=== PATIENT | female | born 1975 | race Caucasian/White ===

== ENCOUNTER 2017-10-30 15:06 | Emergency (ER) | payer OTHER ==
[2017-10-30] MEDS ORDERED: LIDOCAINE 1% MPF 5 ML VIAL ONE (16:13)
[2017-10-30] MEDS ORDERED: HYDROCODONE/APAP 10/325 TAB ONE (16:14)
[2017-10-30 16:25] LABS: Absolute Lymphocytes (CBC) 1.8 K/uL (0.7-4.9); Absolute Monocytes 1.1 K/uL (0.1-1.3); Absolute Neutrophil 11.5 K/uL (1.8-8.0); Basophils % 0.3 % (0-1.3); Eosinophils % 1.3 % (0-4.4); Hematocrit 42.1 % (36.0-45.0); Lymphocytes % 12.3 % (15.3-44.8); MCH 32.7 pg (27.0-35.0); MCV 96.8 fL (80-100); MPV 9.5 fL (7.6-11.3); Monocytes % 7.7 % (3.3-12.3); RBC Red Blood Cell Count 4.35 M/uL (3.86-4.86)
--- NOTE | 2017-10-30 16:34 | RAD REPORT ---
EXAM DESCRIPTION: RAD - Elbow Left 3 View - 10/30/2017 4:13 pm CLINICAL HISTORY: Left elbow pain and swelling FINDINGS: No fracture or dislocation is seen. Edema is present within the subcutaneous tissues
[2017-10-30 16:37] LABS: Potassium 3.6 mEq/L (3.6-5.0)
[2017-10-30] MEDS ORDERED: CLINDAMYCIN 600MG/D5W 600 MG/50 ML BAG IV ONE (17:09)
[2017-10-30] MEDS ORDERED: SMZ./TMP. 800/160 MG TABLET ONE (17:09)
--- NOTE | 2017-10-30 18:19 | ER ---
Nurse's Notes [facility] Name: Ekta Collins Age: 42 yrs Sex: Female : 1975 Arrival Date: 10/30/2017 Time: 15:10 Bed 26 Private MD: Rocky Frias Diagnosis: Olecranon bursitis, left elbow;Cellulitis of left upper limb Presentation: 10/30 15:28 Presenting complaint: Patient states: Redness and swelling to left elbow. Patient had aj abrasion to elbow 1 week ago. Transition of care: patient was not received from another setting of care. Onset of symptoms was October 19, 2017. Risk Assessment: Do you want to hurt yourself or someone else? Patient reports no desire to harm self or others. Care prior to arrival: None. 15:28 Method Of Arrival: Ambulatory 15:28 Acuity: FRENCH 3 aj 16:09 Initial Sepsis Screen: Does the patient meet any 2 criteria? No. Patient's initial kr2 sepsis screen is negative. Does the patient have a suspected source of infection? Yes: Skin breakdown/wound. Triage Assessment: 15:29 General: Appears in no apparent distress. comfortable, Behavior is calm, cooperative, aj appropriate for age. Pain: Complains of pain in left elbow. Neuro: Level of Consciousness is awake, alert, obeys commands, Oriented to person, place, time, situation, Appropriate for age. Respiratory: Airway is patent Respiratory effort is even, unlabored, Respiratory pattern is regular, symmetrical. Derm: Skin is intact, is healthy with good turgor, Skin is pink, warm \T\ dry. normal. Musculoskeletal: Swelling present in left elbow. 16:09 Injury Description: Abrasion sustained to left elbow. 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 - Social history:: Smoking status: Patient uses tobacco products, smokes one pack cigarettes per day. - Ebola Screening: : Patient negative for fever greater than or equal to 101.5 degrees Fahrenheit, and additional compatible Ebola Virus Disease symptoms Patient denies exposure to infectious person Patient denies travel to an Ebola-affected area in the 21 days before illness onset No symptoms or risks identified at this time. - Family history:: not pertinent. - Hospitalizations: : No recent hospitalization is reported. Screenin:09 Abuse screen: Denies threats or abuse. Denies injuries from another. Nutritional kr2 screening: No deficits noted. Tuberculosis screening: No symptoms or risk factors identified. Fall Risk None identified. Assessment: 15:30 General: Appears in no apparent distress. uncomfortable, well groomed, well developed, kr2 well nourished, Behavior is calm, cooperative, appropriate for age. Pain: Complains of pain in left elbow Pain radiates to left arm Pain currently is 10 out of 10 on a pain scale. Quality of pain is described as aching, Pain began one week ago Is continuous, Alleviated by rest, Aggravated by increased activity, repositioning. Neuro: Level of Consciousness is awake, alert, obeys commands, Oriented to person, place, time, situation, Appropriate for age Ecological Risk Assessor are equal bilaterally Intact. Cardiovascular: Capillary refill < 3 seconds in bilateral fingers Patient's skin is warm and dry. Respiratory: Airway is patent Respiratory effort is even, unlabored, Respiratory pattern is regular, symmetrical. GI: Abdomen is flat, non-distended. : No signs and/or symptoms were reported regarding the genitourinary system. EENT: Oral mucosa is moist. Derm: Skin is intact, is healthy with good turgor, Skin is pink, warm \T\ dry. Derm: redness and swelling to left elbow, small abrasion that occurred after a fall 1 week ago. Musculoskeletal: Range of motion: limited in left elbow Swelling present in left elbow. 16:30 Reassessment: Patient appears in no apparent distress at this time. Patient and/or kr2 family updated on plan of care and expected duration. Pain level reassessed. Patient is alert, oriented x 3, equal unlabored respirations, skin warm/dry/pink. Patient states feeling better. 17:30 Reassessment: Patient appears in no apparent distress at this time. Patient and/or kr2 family updated on plan of care and expected duration. Pain level reassessed. Patient is alert, oriented x 3, equal unlabored respirations, skin warm/dry/pink. Patient states feeling better. Vital Signs: 15:29 BP 125 / 85; Pulse 80; Resp 16; Temp 97.8; Pulse Ox 97% on R/A; Weight 68.04 kg; Height aj 5 ft. 0 in. (152.40 cm); 17:13 BP 116 / 86; Pulse 68; Resp 17; Pulse Ox 96% on R/A; kr2 18:28 BP 120 / 80; Pulse 70; Resp 16; Pulse Ox 99% on R/A; kr2 15:29 Body Mass Index 29.29 (68.04 kg, 152.40 cm) ED Course: 15:10 Patient arrived in ED. sb2 15:10 Rocky Frias MD is Private Physician. sb2 15:29 Triage completed. aj 15:29 Arm band placed on right wrist. Patient placed in an exam room. aj 15:34 Toan Ruiz MD is Attending Physician. rn 15:53 Verenice Gonzáles RN is Primary Nurse. kr2 16:00 First set of blood cultures drawn by me. Inserted saline lock: 20 gauge in right kr2 antecubital area, using aseptic technique. Blood collected. 16:10 Patient has correct armband on for positive identification. Bed in low position. Call kr2 light in reach. Side rails up X 1. Adult w/ patient. Pulse ox on. NIBP on. Door closed. Warm blanket given. Head of bed elevated. 16:13 X-ray completed. Portable x-ray completed in exam room. Patient tolerated procedure kc2 well. 16:13 XRAY Elbow LEFT 3 view In Process Unspecified. EDMS 18:11 IV discontinued, intact, bleeding controlled, No redness/swelling at site. Pressure mb3 dressing applied. 18:18 Rocky Frias MD is Referral Physician. rn 18:27 No provider procedures requiring assistance completed. kr2 Administered Medications: 16:14 Drug: [place] 10 mg-325 mg 1 tabs Route: PO; kr2 17:00 Follow up: Response: No adverse reaction; Pain is decreased kr2 17:08 Drug: Clindamycin 600 mg Route: IVPB; Infused Over: 30 mins; Site: right antecubital; kr2 17:30 Follow up: Response: No adverse reaction; IV Status: Completed infusion kr2 17:08 Drug: Bactrim (160 mg-800 mg (DS) 1 tablet Route: PO; kr2 18:30 Follow up: Response: No adverse reaction kr2 Outcome: 18:19 Discharge ordered by . rn 18:27 Discharged to home ambulatory, with family. kr2 18:27 Condition: good 18:27 Discharge instructions given to patient, family, Instructed on discharge instructions, follow up and referral plans. medication usage, Demonstrated understanding of instructions, follow-up care, medications, Prescriptions given X 3. 18:32 Patient left the ED. kr2 Signatures: Dispatcher [employer] EDMS Nubia George, RN RN Toan Santos MD MD rn Carr, Kelsie kc2 Verenice Gonzáles RN RN kr2 Radha Rodriguez sb2 Ozzie Reza RN RN mb3 Corrections: (The following items were deleted from the chart) 15:31 15:29 Arm band placed on right wrist. Patient placed in an exam room, Patient notified aj of wait time aj 18:27 18:27 Discharge instructions given to patient, family, Instructed on discharge kr2 instructions, follow up and referral plans. medication usage, Demonstrated understanding of instructions, follow-up care, medications, Prescriptions given X 2, kr2
--- NOTE | 2017-10-30 18:20 | EDPHYS ---
Physician Documentation [facility] Name: Ekta Collins Age: 42 yrs Sex: Female : 1975 Arrival Date: 10/30/2017 Time: 15:10 Bed 26 Private MD: Rocky Frias ED Physician Toan Ruiz HPI: 10/30 15:59 This 42 yrs old Female presents to ER via Ambulatory with complaints of Elbow rn Injury. 15:59 The patient or guardian complains of injury, pain. The complaints affect the left rn elbow. Onset: The symptoms/episode began/occurred 1.5 week(s) ago. Associated signs and symptoms: Pertinent positives: erythema, swelling. Severity of symptoms: At their worst the symptoms were moderate, in the emergency department the symptoms are unchanged. The patient has not experienced similar symptoms in the past. Reports fell in [place] pool 1.5 weeks ago, hit elbow on concrete, didn't think it was broken, didn't get evaluated, came in today for swelling and redness of elbow, + radiates up left arm, + redness and warmth. . 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 - Social history:: Smoking status: Patient uses tobacco products, smokes one pack cigarettes per day. - Ebola Screening: : Patient negative for fever greater than or equal to 101.5 degrees Fahrenheit, and additional compatible Ebola Virus Disease symptoms Patient denies exposure to infectious person Patient denies travel to an Ebola-affected area in the 21 days before illness onset No symptoms or risks identified at this time. - Family history:: not pertinent. - Hospitalizations: : No recent hospitalization is reported. ROS: 15:59 Constitutional: Negative for fever, chills, and weight loss, Eyes: Negative for injury, rn pain, redness, and discharge, Neck: Negative for injury, pain, and swelling, Cardiovascular: Negative for chest pain, palpitations, and edema, Respiratory: Negative for shortness of breath, cough, wheezing, and pleuritic chest pain, Abdomen/GI: Negative for abdominal pain, nausea, vomiting, diarrhea, and constipation, Back: Negative for injury and pain, MS/Extremity: + injury and pain to left elbow Skin: + redness and swelling to left elbow Neuro: Negative for headache, weakness, numbness, tingling, and seizure. Exam: 15:59 Constitutional: This is a well developed, well nourished patient who is awake, alert, rn and in no acute distress. MS/ Extremity: Pulses equal, no cyanosis. Neurovascular intact. + full flexion of left elbow without pain, + erythema and swelling at olecranon with central abrasion, + mild streaking that extends proximally about mid-bicep Vital Signs: 15:29 BP 125 / 85; Pulse 80; Resp 16; Temp 97.8; Pulse Ox 97% on R/A; Weight 68.04 kg; Height aj 5 ft. 0 in. (152.40 cm); 17:13 BP 116 / 86; Pulse 68; Resp 17; Pulse Ox 96% on R/A; kr2 18:28 BP 120 / 80; Pulse 70; Resp 16; Pulse Ox 99% on R/A; kr2 15:29 Body Mass Index 29.29 (68.04 kg, 152.40 cm) aj MDM: 15:34 Patient medically screened. rn 17:28 Differential diagnosis: closed fracture, traumatic bursitis, cellulitis. Data reviewed: rn vital signs, nurses notes, lab test result(s), radiologic studies, plain films, and as a result, I will discharge patient. Counseling: I had a detailed discussion with the patient and/or guardian regarding: the historical points, exam findings, and any diagnostic results supporting the discharge/admit diagnosis, lab results, radiology results, the need for outpatient follow up, to return to the emergency department if symptoms worsen or persist or if there are any questions or concerns that arise at home. 18:15 Response to treatment: the patient's symptoms have mildly improved after treatment. rn Special discussion: I discussed with the patient/guardian in detail that at this point there is no indication for admission to the hospital. It is understood, however, that if the symptoms persist or worsen the patient needs to return immediately for re-evaluation. ED course: Pt with cellulitis, no abscess, does not appear to be in joint as has full flexion, given IV clindamycin, will dc hoem with clinda and bactrim with return precautions.. 10/30 15:41 Order name: CBC with Diff; Complete Time: 16:44 rn 10/30 15:41 Order name: Basic Metabolic Panel; Complete Time: 16:44 rn 10/30 15:41 Order name: XRAY Elbow LEFT 3 view; Complete Time: 16:44 rn 10/30 15:41 Order name: Blood Culture Adult (2) rn 10/30 15:41 Order name: Procalcitonin; Complete Time: 17:01 rn 10/30 15:41 Order name: IV Start; Complete Time: 16:09 rn Administered Medications: 16:14 Drug: [place] 10 mg-325 mg 1 tabs Route: PO; kr2 17:00 Follow up: Response: No adverse reaction; Pain is decreased kr2 17:08 Drug: Clindamycin 600 mg Route: IVPB; Infused Over: 30 mins; Site: right antecubital; kr2 17:30 Follow up: Response: No adverse reaction; IV Status: Completed infusion kr2 17:08 Drug: Bactrim (160 mg-800 mg (DS) 1 tablet Route: PO; kr2 18:30 Follow up: Response: No adverse reaction kr2 Disposition: 10/30/17 18:19 Discharged to Home. Impression: Olecranon bursitis, left elbow, Cellulitis of left upper limb. - Condition is Stable. - Discharge Instructions: Bursitis, Cellulitis, Olecranon Bursitis, [id number]. - Prescriptions for Clindamycin HCl 300 mg Oral Capsule - take 1 capsule by ORAL route every 6 hours for 10 days; 40 capsule. Tylenol- Codeine #3 300-30 mg Oral Tablet - take 1 tablet by ORAL route every 6 hours As needed; 20 tablet. Bactrim DS 800- 160 mg Oral Tablet - take 1 tablet by ORAL route every 12 hours for 10 days; 20 tablet. - Medication Reconciliation Form, Thank You Letter, Antibiotic Education, Prescription Opioid Use form. - Follow up: Rocky Frias MD; When: 2 - 3 days; Reason: Recheck today's complaints, Re-evaluation by your physician. - Problem is new. - Symptoms have improved. Signatures: Dispatcher [employer] EDMS George, NubiaJAYSON casarez RN, Roman, MD MD rn Reaves, Karey, JAYSON RN kr2 Corrections: (The following items were deleted from the chart) 18:32 18:19 10/30/2017 18:19 Discharged to Home. Impression: Olecranon bursitis, left elbow; kr2 Cellulitis of left upper limb. Condition is Stable. Forms are Medication Reconciliation Form, Thank You Letter, Antibiotic Education, Prescription Opioid Use. Follow up: Rocky Frias; When: 2 - 3 days; Reason: Recheck today's complaints, Re-evaluation by your physician. Problem is new. Symptoms have improved. rn
== END 2017-10-30 18:32 | disposition home or self-care (01) ==
LOC: ER 15:06
DX: M70.22 Olecranon bursitis, left elbow (principal); Y93.89 Activity, other specified; E78.5 Hyperlipidemia, unspecified; H91.90 Unspecified hearing loss, unspecified ear; F17.210 Nicotine dependence, cigarettes, uncomplicated
CPT/HCPCS: 36415; 80048; 84145; 85025; 87040; 96365; 99284

== ENCOUNTER 2017-11-01 09:07 | Inpatient (IN) | payer OTHER ==
[2017-11-01] MEDS ORDERED: BUPIVACAINE 0.5% PF 10 ML VIAL ONE (09:46)
[2017-11-01] MEDS ORDERED: LIDOCAINE 1% 20 ML MDV ONE (09:46)
[2017-11-01 10:06] LABS: Absolute Lymphocytes (CBC) 1.3 K/uL (0.7-4.9); Absolute Monocytes 0.9 K/uL (0.1-1.3); Absolute Neutrophil 7.4 K/uL (1.8-8.0); Basophils % 0.8 % (0-1.3); Eosinophils % 2.4 % (0-4.4); Hematocrit 40.2 % (36.0-45.0); Lymphocytes % 13.5 % (15.3-44.8); MCH 32.7 pg (27.0-35.0); MCV 97.1 fL (80-100); MPV 9.4 fL (7.6-11.3); Monocytes % 8.7 % (3.3-12.3); RBC Red Blood Cell Count 4.14 M/uL (3.86-4.86)
[2017-11-01] MEDS ORDERED: HYDROCODONE/APAP 10/325 TAB ONE (10:14)
[2017-11-01 10:23] LABS: BUN Blood Urea Nitrogen 10 mg/dL (6-20); Bicarbonate 25 mEq/L (21-31); Glucose Level 94 mg/dL (65-120); Potassium 3.5 mEq/L (3.6-5.0); Sodium Level 135 mEq/L (135-145)
--- NOTE | 2017-11-01 11:00 | RAD REPORT ---
EXAM DESCRIPTION: US - Extremity Nonvascular Limited - 11/01/2017 10:12 am CLINICAL HISTORY: Soft tissue swelling posterior left elbow COMPARISON: None. FINDINGS: Preliminary findings were provided at the time of the study. Posterior to the left elbow there is prominent soft tissue swelling present. A 2.3 x 2.2 x 0.7 centim eter focal hypoechoic area seen centrally within this area of soft tissue swelling. The hypoechoic ar ea is avascular. There is hyperemia of soft tissues. No sonographic findings that would indicate elbo w joint communication. Disc could be an olecranon bursitis or an unrelated soft tissue abscess. IMPRESSION: Approximately 2 centimeter oval hypoechoic irregular fluid collection posterior to the e lbow. Communication to the joint space is not suspected. A soft tissue abscess and an acute olecranon bursitis can have a similar appearance at sonography.
--- NOTE | 2017-11-01 11:34 | ER ---
Nurse's Notes [facility] Name: Ekta Collins Age: 42 yrs Sex: Female : 1975 Arrival Date: 11/01/2017 Time: 09:10 Bed 6 Private MD: Rocky Frias Diagnosis: Cellulitis, abscess to the left elbow Presentation: 11/01 09:19 Presenting complaint: states: " She was seen here on Sat and sent home w/ ph antibiotics, they said if it gets worse to come back for IV antibiotics." Swelling and redness noted to L elbow, pt reports that pain radiates to axillary area, also c/o headache and nausea, denies fever, V/D. Transition of care: patient was not received from another setting of care. Onset of symptoms was November 01, 2017. Risk Assessment: Do you want to hurt yourself or someone else? Patient reports no desire to harm self or others. Initial Sepsis Screen: Does the patient meet any 2 criteria? No. Patient's initial sepsis screen is negative. Does the patient have a suspected source of infection? Yes: Skin breakdown/wound. Care prior to arrival: None. 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 - Social history:: Smoking status: Patient uses tobacco products, smokes one pack cigarettes per day. - Ebola Screening: : No symptoms or risks identified at this time. Screenin:50 Abuse screen: Denies threats or abuse. Denies injuries from another. Nutritional ss screening: No deficits noted. Tuberculosis screening: Never had TB. Fall Risk None identified. Assessment: 09:50 General: Appears in no apparent distress. comfortable, Behavior is cooperative, ss anxious, Denies fever, feeling ill, fatigue, chills. Pain: Complains of pain in left elbow Pain currently is 8 out of 10 on a pain scale. Quality of pain is described as tender, throbbing, Pain began approx 4 days ago Is continuous. Neuro: Level of Consciousness is awake, alert, obeys commands, Oriented to person, place, time, situation. Cardiovascular: Capillary refill < 3 seconds is brisk in bilateral fingers. Respiratory: Airway is patent Respiratory effort is even, unlabored, Respiratory pattern is regular, symmetrical. GI: Patient currently denies diarrhea, nausea, vomiting. : No signs and/or symptoms were reported regarding the genitourinary system. EENT: Nares are clear Oral mucosa is moist. Reports deafness. Derm: Skin is intact, is healthy with good turgor, Skin is dry, Skin is pink, warm \\T\\ dry. normal. Derm: Derm: Abscess located on left elbow is golf ball sized. Musculoskeletal: Circulation, motion, and sensation intact. Range of motion: intact in all extremities, Swelling present in left elbow. 10:06 Reassessment: Pt in ultrasound at this time. ss 10:14 Reassessment: Patient is back from ultrasound at this time. Is thankful for oral pain ss medications. Vital Signs: 09:22 BP 114 / 80; Pulse 79; Resp 18; Temp 97.4; Pulse Ox 96% ; Weight 68.04 kg; Height 5 ft. ph 5 in. (165.10 cm); 09:22 Body Mass Index 24.96 (68.04 kg, 165.10 cm) ph ED Course: 09:10 Patient arrived in ED. mr 09:11 Rocky Frias MD is Private Physician. mr 09:13 Yunior Pagan MD is Attending Physician. kdr 09:21 Triage completed. ph 09:23 Arm band placed on. ph 09:33 Jammie Andrade, JAYSON is Primary Nurse. ss 09:50 Patient has correct armband on for positive identification. Bed in low position. Call ss light in reach. 09:54 Inserted saline lock: 20 gauge in right antecubital area, using aseptic technique. ss Blood collected. 10:07 US Extrmty Nonvasular Limited In Process Unspecified. EDMS 10:08 Ultrasound completed. Patient tolerated well. Patient moved back from ultrasound. lc3 10:36 Awaiting radiology results. sv 11:31 Rocky Frias MD is Hospitalizing Provider. kdr 12:21 Naveen Mims MD is Hospitalizing Provider. kdr 12:31 Urine collected: clean catch specimen, clear. dh3 13:52 No provider procedures requiring assistance completed. Patient admitted, IV remains in place. Administered Medications: 10:14 Drug: [place] 10 mg-325 mg 1 tabs Route: PO; 12:29 Follow up: Response: No adverse reaction; Pain is decreased 12:27 CANCELLED (Other Intervention Used): Rocephin - (cefTRIAXone) 1 grams IVPB once over 30 ss mins; (mix in 50 mL NS) 12:27 Drug: Rocephin 1 grams Route: IV; Rate: calculated rate; Site: right antecubital; ss 13:19 Follow up: Response: No adverse reaction; IV Status: Completed infusion ss 12:29 Drug: vancoMYCIN 1 grams Route: IVPB; Infused Over: 2 hrs; Site: right antecubital; 13:20 Follow up: IV Status: Infusion continued upon transfer Outcome: 11:34 Decision to Hospitalize by Provider. kdr 13:52 Admitted to Med/surg family with patient, via wheelchair, room 203, Report called to JAYSON Barragan 13:52 Condition: good 13:52 Instructed on the need for admit. 13:53 Patient left the ED. Signatures: Dispatcher [employer] Paula Lama RN RN Yunior Pagan MD MD kdr Rivera, Maria mr Smirch, Shelby, RN RN Seema Rose RN RN Juwan, Mayte Elias [facility]
--- NOTE | 2017-11-01 11:34 | EDPHYS ---
Physician Documentation [facility] Name: Ekta Collins Age: 42 yrs Sex: Female : 1975 Arrival Date: 11/01/2017 Time: 09:10 Bed 6 Private MD: Rocky Frias ED Physician Yunior Pagan HPI: 11/01 16:51 This 42 yrs old Female presents to ER via Ambulatory with complaints of kdr Abscess. 16:51 The patient presents with an abscess of the left elbow, The patient presents with kdr cellulitis of the , the patient presents with a swollen area of the . Description: The affected area is moderate sized, confluent, localized, well demarcated, erythematous, fluctuant, hot, raised, swollen, tense, warm. Onset: The symptoms/episode began/occurred gradually, 4 day(s) ago. Possible cause(s): unknown. Associated signs and symptoms: Pertinent positives: erythema, swelling, Pertinent negatives: drainage, foreign body sensation, fever, headache, nausea, shortness of breath, vomiting. Modifying factors: the symptoms are alleviated by nothing, the symptoms are aggravated by movement, touching. Severity of symptoms: At their worst the symptoms were mild, just prior to arrival, in the emergency department the symptoms are actually worse, mildly. The patient has not experienced similar symptoms in the past. The patient has been recently seen at the [facility] Emergency Department, this week. 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 - Social history:: Smoking status: Patient uses tobacco products, smokes one pack cigarettes per day. - Ebola Screening: : No symptoms or risks identified at this time. ROS: 16:51 Constitutional: Negative for fever, chills, and weight loss, Eyes: Negative for injury, kdr pain, redness, and discharge, Neck: Negative for injury, pain, and swelling, Cardiovascular: Negative for chest pain, palpitations, and edema, Respiratory: Negative for shortness of breath, cough, wheezing, and pleuritic chest pain, Abdomen/GI: Negative for abdominal pain, nausea, vomiting, diarrhea, and constipation, Back: Negative for injury and pain, Neuro: Negative for headache, weakness, numbness, tingling, and seizure activity. Psych: Negative for depression, anxiety, suicide ideation, homicidal ideation, and hallucinations, Allergy/Immunology: Negative for hives, rash, and allergies, Endocrine: Negative for neck swelling, polydipsia, polyuria, polyphagia, and marked weight changes, Hematologic/Lymphatic: Negative for swollen nodes, abnormal bleeding, and unusual bruising. 16:51 Skin: Positive for abscess, cellulitis, erythema, swelling, of the left elbow. Exam: 16:51 Constitutional: This is a well developed, well nourished patient who is awake, alert, kdr and in no acute distress. Head/Face: Normocephalic, atraumatic. Eyes: Pupils equal round and reactive to light, extra-ocular motions intact. Lids and lashes normal. Conjunctiva and sclera are non-icteric and not injected. Cornea within normal limits. Periorbital areas with no swelling, redness, or edema. Neck: Trachea midline, no thyromegaly or masses palpated, and no cervical lymphadenopathy. Supple, full range of motion without nuchal rigidity, or vertebral point tenderness. No Meningismus. Chest/axilla: Normal chest wall appearance and motion. Nontender with no deformity. No lesions are appreciated. Cardiovascular: Regular rate and rhythm with a normal S1 and S2. No gallops, murmurs, or rubs. Normal PMI, no JVD. No pulse deficits. Respiratory: Lungs have equal breath sounds bilaterally, clear to auscultation and percussion. No rales, rhonchi or wheezes noted. No increased work of breathing, no retractions or nasal flaring. Abdomen/GI: Soft, non-tender, with normal bowel sounds. No distension or tympany. No guarding or rebound. No evidence of tenderness throughout. Back: No spinal tenderness. No costovertebral tenderness. Full range of motion. Skin: Warm, dry with normal turgor. Normal color with no rashes, no lesions, and no evidence of cellulitis. Neuro: Awake and alert, GCS 15, oriented to person, place, time, and situation. Cranial nerves II-XII grossly intact. Motor strength 5/5 in all extremities. Sensory grossly intact. Cerebellar exam normal. Normal gait. Psych: Awake, alert, with orientation to person, place and time. Behavior, mood, and affect are within normal limits. 16:51 Musculoskeletal/extremity: Extremities: all appear grossly normal, with no appreciated pain with palpation, grossly normal except: pain, swelling. Vital Signs: 09:22 BP 114 / 80; Pulse 79; Resp 18; Temp 97.4; Pulse Ox 96% ; Weight 68.04 kg; Height 5 ft. ph 5 in. (165.10 cm); 09:22 Body Mass Index 24.96 (68.04 kg, 165.10 cm) ph MDM: 11:34 Patient medically screened. kdr 16:51 Data reviewed: nurses notes. Counseling: I had a detailed discussion with the patient kdr and/or guardian regarding: the historical points, exam findings, and any diagnostic results supporting the discharge/admit diagnosis, lab results, radiology results, the need for further work-up and treatment in the hospital. 11/01 09:31 Order name: CBC with Diff; Complete Time: 11:25 kdr 11/01 09:31 Order name: Chem 7; Complete Time: 11:25 kdr 11/01 09:51 Order name: US Extrmty Nonvasular Limited; Complete Time: 11:25 kdr 11/01 12:54 Order name: Urine Dipstick--Ancillary (enter results) bd 11/01 13:13 Order name: Urine Dipstick-Ancillary EDMS 11/01 12:30 Order name: Diet Regular; Complete Time: 12:31 ss Administered Medications: 10:14 Drug: [place] 10 mg-325 mg 1 tabs Route: PO; ss 12:29 Follow up: Response: No adverse reaction; Pain is decreased ss 12:27 CANCELLED (Other Intervention Used): Rocephin - (cefTRIAXone) 1 grams IVPB once over 30 ss mins; (mix in 50 mL NS) 12:27 Drug: Rocephin 1 grams Route: IV; Rate: calculated rate; Site: right antecubital; ss 13:19 Follow up: Response: No adverse reaction; IV Status: Completed infusion ss 12:29 Drug: vancoMYCIN 1 grams Route: IVPB; Infused Over: 2 hrs; Site: right antecubital; ss 13:20 Follow up: IV Status: Infusion continued upon transfer ss Disposition: 11/01/17 11:34 Hospitalization ordered by Naveen Mims for Inpatient Admission. Preliminary diagnosis is Cellulitis, abscess to the left elbow. - Bed requested for Telemetry/MedSurg (Inpatient). - Status is Inpatient Admission. ss - Condition is Fair. - Problem is new. - Symptoms are unchanged. UTI on Admission? No Signatures: Dispatcher [employer] EDOK Nicolle Griffiths RN RN Yunior Pagan MD MD [facility] Jammie Andrade RN RN Seema Rose RN RN ph Corrections: (The following items were deleted from the chart) 12:21 11:34 Hospitalization Ordered by Rocky Frias MD for Inpatient Admission. Preliminary kdr diagnosis is Cellulitis, abscess to the left elbow. Bed requested for Telemetry/MedSurg (Inpatient). Status is Inpatient Admission. Condition is Fair. Problem is new. Symptoms are unchanged. UTI on Admission? No. kdr 12:27 11:27 Rocephin - (cefTRIAXone) 1 grams IVPB once over 30 mins; (mix in 50 mL NS) ss ordered. kdr 12:40 12:21 11/01/2017 11:34 Hospitalization Ordered by Naveen Mims MD for Inpatient Admission. Preliminary diagnosis is Cellulitis, abscess to the left elbow. Bed requested for Telemetry/MedSurg (Inpatient). Status is Inpatient Admission. Condition is Fair. Problem is new. Symptoms are unchanged. UTI on Admission? No. kdr 13:53 12:40 11/01/2017 11:34 Hospitalization Ordered by Naveen Mims MD for Inpatient ss Admission. Preliminary diagnosis is Cellulitis, abscess to the left elbow. Bed requested for Telemetry/MedSurg (Inpatient). Status is Inpatient Admission. Condition is Fair. Problem is new. Symptoms are unchanged. UTI on Admission? No. dw
[2017-11-01] MEDS ORDERED: VANCOMYCIN 1 GM/250 ML BAG ONE (12:07)
[2017-11-01] MEDS ORDERED: CEFTRIAXONE/SWI 1gm 1 GM/10 ML SYR ONE (12:08)
[2017-11-01] MEDS ORDERED: ACETAMINOPHEN 500 MG TAB PO PRN (12:26)
[2017-11-01 13:13] LABS: Urine Blood TRACE (NEG); Urine Glucose NEGATIVE (NEG); Urine Protein NEGATIVE (NEG)
[2017-11-01 14:55] LABS: Urine Appearance CLOUDY; Urine Bilirubin NEGATIVE (NEG); Urine Blood TRACE (NEG); Urine Color YELLOW; Urine Glucose NEGATIVE (NEG); Urine Protein NEGATIVE (NEG); Urine Specific Gravity <=1.005 (1.005-1.030); Urine Urobilinogen 0.2 mg/dL (0.2-1.0); Urine pH 6.5 (5.0-7.0)
[2017-11-01 15:08] LABS: Urine Microscopic Reflex ORDER UMIC
[2017-11-01 15:32] LABS: Urine Bacteria <20 /HPF (<20); Urine Culture Reflex Order NOT NEEDED; Urine RBC <5 /HPF (NONE SEEN)
--- NOTE | 2017-11-01 15:42 | P.HP ---
Certification for Inpatient Patient admitted to: Inpatient With expected LOS: >2 Midnights Patient will require the following post-hospital care: None Practitioner: I am a practitioner with admitting privileges, knowledge of patient current condition, hospital course, and medical plan of care. Services: Services provided to patient in accordance with Admission requirements found in Title 42 Section 412.3 of the Code of Federal Regulations Patient History Date of Service: 11/01/17 Reason for admission: infection History of Present Illness: 42 y/o female otherwise healthy(deafness) who presented to ER beciae of left elbow infection. All hisotry is obtained by writing because she is deaf. She had left elbow infection for 2 weeks. She took sone oral antibiotic without improvement. The infection is getting larger and hurts more. She has no fever chills but slight headache. She has no prior infections. Allergies NKDA Allergy (Uncoded 05/04/15 08:37) Unknown No Known Allergies Allergy (Uncoded 10/19/16 08:16) Unknown Home Medications: Atorvastatin Calcium [Lipitor] 20 mg PO BEDTIME 11/01/17 - Past Medical/Surgical History Has patient received pneumonia vaccine in the past: No Diabetic: No -: HLD - Social History Smoking Status: Current every day smoker Alcohol use: Yes CD- Drugs: Yes Caffeine use: Yes Place of Residence: Home Review of Systems 10-point ROS is otherwise unremarkable Physical Examination - Vital Signs Temperature: 98.1 F Blood Pressure: 112/78 Pulse: 61 Respirations: 18 Pulse Ox (%): 99 - Physical Exam General: Alert, In no apparent distress, Oriented x3 HEENT: Atraumatic, PERRLA, Mucous membr. moist/pink, EOMI, Sclerae nonicteric Neck: Supple, 2+ carotid pulse no bruit, No LAD, Without JVD or thyroid abnormality Respiratory: Clear to auscultation bilaterally, Normal air movement Cardiovascular: Regular rate/rhythm, Normal S1 S2 Gastrointestinal: Normal bowel sounds, No tenderness Musculoskeletal: Other (swelling and erythema left elbow, tender) Integumentary: No rashes Neurological: Normal gait, Normal speech, Normal strength at 5/5 x4 extr, Normal tone, Normal affect Lymphatics: No axilla or inguinal lymphadenopathy - Studies Laboratory Data (last 24 hrs) 11/01/17 09:50: Sodium 135, Potassium 3.5 L, BUN 10, Creatinine 0.70, Glucose 94 11/01/17 09:50: WBC 10.0 D, Hgb 13.5, Hct 40.2, Plt Count 287 Assessment and Plan - Problems (Diagnosis) (1) Bursitis due to bacterial infection Current Visit: Yes Status: Acute - Plan --Start IV ABX Zosyn(received one dose Vanco in ER) --IVF --Cons Gen Surgery for possible I/D - Advance Directives Does patient have a Living Will: No Does patient have a Durable POA for Healthcare: No
[2017-11-01] MEDS: MORPHINE 4 MG/ML SYR IV PRN ×2 (15:49→21:21)
[2017-11-01] MEDS: NA CHLORIDE 0.9% 1,000 ML IV SCH (15:49)
[2017-11-01] MEDS: ENOXAPARIN 40 MG/0.4 ML SQ SCH (17:27)
[2017-11-01] MEDS: PIPER/TAZO/NS 3.375gm 3.375 GM/100 ML BAG IV SCH (17:27)
[2017-11-02] MEDS: PIPER/TAZO/NS 3.375gm 3.375 GM/100 ML BAG IV SCH ×3 (00:42→16:15)
[2017-11-02] MEDS: NA CHLORIDE 0.9% 1,000 ML IV SCH ×2 (04:16→17:47)
[2017-11-02] MEDS: MORPHINE 4 MG/ML SYR IV PRN ×3 (05:14→16:15)
[2017-11-02 05:56] LABS: Albumin 3.4 g/dL (3.2-5.5); Bilirubin Total 0.6 mg/dL (0.3-1.2); Potassium 3.8 mEq/L (3.6-5.0); Protein, Total 6.2 g/dL (6.0-8.3)
[2017-11-02 06:10] LABS: Absolute Lymphocytes (CBC) 1.5 K/uL (0.7-4.9); Absolute Monocytes 0.8 K/uL (0.1-1.3); Absolute Neutrophil 7.5 K/uL (1.8-8.0); Basophils % 0.7 % (0-1.3); Eosinophils % 3.2 % (0-4.4); Hematocrit 39.1 % (36.0-45.0); Lymphocytes % 14.5 % (15.3-44.8); MCH 33.3 pg (27.0-35.0); MPV 9.8 fL (7.6-11.3); Monocytes % 8.3 % (3.3-12.3); RBC Red Blood Cell Count 4.02 M/uL (3.86-4.86)
[2017-11-02] MEDS ORDERED: ENOXAPARIN 40 MG/0.4 ML SQ SCH (09:00)
[2017-11-02] MEDS: VANCOMYCIN 1.25 GM in NA CHLORIDE 0.9% 250 ML IVPB SCH (12:11)
[2017-11-02] MEDS: ENOXAPARIN 40 MG/0.4 ML SQ SCH (16:15)
--- NOTE | 2017-11-02 16:34 | RAD REPORT ---
EXAM DESCRIPTION: RAD - Elbow Left 2 View - 11/02/2017 4:09 pm CLINICAL HISTORY: Pain and swelling. COMPARISON: 10/30/2017 FINDINGS: Prominent soft tissue swelling is seen along the olecranon process, fractionally more prom inent than on the prior study. No fracture, dislocation or radiopaque foreign body.
--- NOTE | 2017-11-02 19:59 | CON ---
Date of Consultation: 11/02/2017 History Of Present Illness: This is my first time seeing this patient to my knowledge. She is a 42- year-old female who unfortunately approximately 2 weeks ago by her report fell onto her knee and her elbow. She did not really have much problems with her elbow until approximately a week ago when she started developing pain. She was seen on Saturday and was given oral antibiotics because of pain an d redness and swelling of her elbow. Unfortunately, this worsened and necessitated admission for wor sening problems. The patient said that she had greater pain than she does now, also with pain travel ing up and down her arm, also with redness up and down her arm. Since she has been admitted, she has been placed on IV antibiotics. She says her pain is subsiding, and the redness has decreased. Physical Examination: She has obvious swelling of her olecranon. Range of motion of her elbow causes pain with full flexio n because of tightness. However, there is no sign of any pain with gentle motion of the elbow. Skin is thin and it does appear that there is fluid on the ultrasound. She has not been n.p.o. We have ordered x-rays, however, they have not yet been completed, and I believe these will most like ly not show any fracture and/or other abnormality. However, they have been ordered. Assessment: A 42-year-old female now with fairly developed left olecranon bursitis and abscess forma tion. She is not systemically ill with normal white count. She is afebrile and currently on IV anti biotics. She has not been n.p.o. We will schedule for her to have operative intervention tomorrow m ost likely at 8 o'clock. She is deaf. However, she does have a family member in the room who signed , and risks, benefits, and alternatives to the procedure have been discussed. Also the plan of proba jaz leaving it open, packing, and going back for a second-look irrigation, debridement have been discussed. She states she understands everything that is presented and at this time agrees to ligia hearn SE/JAQUELINE Voice ID: [id number] Report ID: [id number]
[2017-11-03] MEDS: PIPER/TAZO/NS 3.375gm 3.375 GM/100 ML BAG IV SCH ×3 (00:24→17:46)
[2017-11-03] MEDS: VANCOMYCIN 1.25 GM in NA CHLORIDE 0.9% 250 ML IVPB SCH ×2 (05:28→23:28)
[2017-11-03] MEDS: NA CHLORIDE 0.9% 1,000 ML IV SCH ×2 (08:00→21:20)
[2017-11-03] MEDS: Ringers Lactate 1,000 ML IV ONE (08:01)
[2017-11-03] MEDS ORDERED: MIDAZOLAM HCL 2 MG/2 ML INJ ONE (08:06)
[2017-11-03] MEDS ORDERED: FENTANYL CITR 250 MCG/5 ML ONE (08:06)
[2017-11-03] MEDS ORDERED: PROPOFOL 200 MG/20 ML VIAL IV ONE (08:06)
[2017-11-03] MEDS ORDERED: SUCCINYLCHOLINE 20 MG/ML (10 ML) IV ONE (08:28)
[2017-11-03] MEDS ORDERED: HYDROCORTISONE SUC 100 MG INJ IV ONE (08:40)
[2017-11-03] MEDS ORDERED: DEXAMETHASONE 10 MG/ML VIAL ONE (08:40)
[2017-11-03] MEDS ORDERED: ROCURONIUM 50 MG/5 ML VIAL IV ONE (08:42)
[2017-11-03] MEDS ORDERED: ONDANSETRON 4 MG/2 ML VIAL ONE ×2 (08:47→09:39)
--- NOTE | 2017-11-03 08:59 | P.PN ---
Subjective Date of Service: 11/02/17 Patient was some drainage of her left elbow. Still with significant erythema. Continue with current plan of care Review of Systems 10-point ROS is otherwise unremarkable Physical Examination - Vital Signs Temperature: 97.1 F Blood Pressure: 124/75 Pulse: 52 Respirations: 20 Pulse Ox (%): 96 - Physical Exam General: Alert, In no apparent distress, Oriented x3 Neck: Supple, JVD not distended Respiratory: Clear to auscultation bilaterally, Normal air movement Cardiovascular: Regular rate/rhythm, Normal S1 S2, No murmurs Gastrointestinal: Normal bowel sounds, Soft and benign, Non-distended, No tenderness Musculoskeletal: No clubbing, No swelling, No tenderness Integumentary: No rashes Neurological: Normal speech, Normal tone, Sensation intact, Cranial nerves 3-12 intact, Normal affect - Studies Medications List Reviewed: Yes Assessment & Plan - Problems (Diagnosis) (1) Bursitis due to bacterial infection Current Visit: Yes Status: Acute - Plan Plan: 1. Continue with IV antibiotic 2. Continue with monitoring wound 3. Surgical consultation appreciated 4. Gentle IV hydration 5. Monitor CBC 6. Strict blood sugar monitoring 7. Pain control 8. GI and DVT prophylaxis - Advance Directives Does patient have a Living Will: No Does patient have a Durable POA for Healthcare: No - Code Status/Comfort Care Code Status Assessed: Yes Code Status: Full Code Critical Care: No Time Spent Managing PTS Care (In Minutes): 30
--- NOTE | 2017-11-03 09:03 | P.PN ---
Subjective Date of Service: 11/03/17 Chief Complaint: infection Continues to slowly improve. No new complaints. Continue with antibiotics and possibly switch to oral in the morning Review of Systems 10-point ROS is otherwise unremarkable Physical Examination - Vital Signs Temperature: 97.1 F Blood Pressure: 124/75 Pulse: 52 Respirations: 20 Pulse Ox (%): 96 - Physical Exam General: Alert, In no apparent distress, Oriented x3 Respiratory: Clear to auscultation bilaterally, Normal air movement Cardiovascular: Regular rate/rhythm, Normal S1 S2, No murmurs Gastrointestinal: Normal bowel sounds, Soft and benign, Non-distended, No tenderness Musculoskeletal: No clubbing, No swelling, Erythema, Tenderness Neurological: Normal speech, Normal tone, Sensation intact, Cranial nerves 3-12 intact, Normal affect Lymphatics: No axilla or inguinal lymphadenopathy - Studies Medications List Reviewed: Yes Assessment & Plan - Problems (Diagnosis) (1) Bursitis due to bacterial infection Current Visit: Yes Status: Acute - Plan Plan: Continue with current plan of care as mentioned below: 1. Continue with IV antibiotic 2. Surgical consultation appreciated 3. Hep-Lock IV 4. Strict blood sugar monitoring 5. Pain control 6. GI and DVT prophylaxis - Advance Directives Does patient have a Living Will: No Does patient have a Durable POA for Healthcare: No - Code Status/Comfort Care Code Status: Full Code Critical Care: No Time Spent Managing PTS Care (In Minutes): 30
[2017-11-03] MEDS ORDERED: ONDANSETRON HCL 40 MG/20 ML VIAL ONE (09:11)
[2017-11-03] MEDS ORDERED: NEOSTIGMINE 1 MG/ML -5 ML SYRINGE ONE (09:11)
[2017-11-03] MEDS ORDERED: GLYCOPYRROLATE 0.2 MG/ML SYR ONE (09:12)
--- NOTE | 2017-11-03 09:31 | P.BOP ---
Preoperative diagnosis: left olecranon bursitis Postoperative diagnosis: same Primary procedure: left olecranon bursectomy with I&Dtracey Estimated blood loss: 20 ccs Anesthesia: General Transferred to: Recovery Room Condition: Good
[2017-11-03] MEDS ORDERED: KETOROLAC 30 MG/ML INJ ONE (09:49)
[2017-11-03] MEDS ORDERED: Ringers Lactate 1,000 ML IV ONE (09:51)
[2017-11-03] MEDS: MORPHINE 4 MG/ML SYR IV PRN ×3 (11:27→22:04)
--- NOTE | 2017-11-03 11:37 | RAD REPORT ---
EXAM DESCRIPTION: Gloria Single View11/03/2017 9:43 am CLINICAL HISTORY: sob COMPARISON: none FINDINGS: The lungs appear clear of acute infiltrate. The heart is normal size IMPRESSION: No acute abnormalities displayed
[2017-11-03] MEDS: ENOXAPARIN 40 MG/0.4 ML SQ SCH (17:46)
--- NOTE | 2017-11-03 20:10 | OP ---
Date of Procedure: 11/03/2017 Surgeon: Alcides Almanza MD Preoperative Diagnosis: Left septic olecranon bursitis. Postoperative Diagnosis: Left septic olecranon bursitis. Procedure: Left elbow irrigation and debridement with bursectomy using a knife, curettes rongeurs. Estimated Blood Loss: 20 cc. Complications: There were no complications. Specimen: No pathology specimen sent other than cultures and the bursa. Indication For Operation: Ms. Collins is a 42-year-old female, who approximately a week ago started having pain and discomfort in elbow. This is related to a fall, which perhaps occurred 2 weeks ago. She went to a physician, who prescribed oral antibiotics that if she does not improve, she should c ome to the emergency department and unfortunately she did not significantly improve and did go to the emergency department requiring admission. I saw her yesterday. She had not been n.p.o. and did not have any signs of systemic illness. The left olecranon bursa appeared to be infected and appeared t o be fairly mature; however, a decision was made to add vancomycin and proceed today with irrigation, debridement and bursectomy. All risks, benefits, and alternatives of this procedure have been discu ssed with the patient and family. They state they understand as things presented and wished to proce ed. Description Of Procedure: The patient was taken to the operating room and placed in supine position. General anesthesia was obtained by Anesthesia staff. There did appear to be some aspiration. Ther efore, , this was replaced with an endotracheal tube. Please refer to Anesthesia note for this. Otherwise, the case continued as normal, placing the patient right side down and she was then prepped and draped in the usual sterile fashion for this procedure. Following this, a sterile tourni quet was placed on her superior left arm. The arm was then elevated, but not exsanguinated and tourn iquet was raised. A standard incision was taken down carefully through skin and soft tissues. Metic ulous hemostasis was being maintained using bipolar electrocautery. The skin is removed from the bur sa in a clockwise fashion starting at 6 o'clock, which was the more distal portion and then proceedin g up to 9 o'clock and back to 12 o'clock along the lateral aspect. This allowed for visualization of this half of the bursa without difficulty. Following this, the most inferior portion of the bursa a nd superior portion of bursa were identified and these were then removed from the underlying fascia u sing scissors. This allowed us for a good plane. This plane is exploited and the bursa is essential ly pushed off the underlying soft tissues and the lateral aspect is freed. This was followed by a ve ry careful dissection of the skin off the medial side. The bursa had been nearly completely removed from the medial side, which is fortunately as discussed, will very well protect the ulnar nerve. The remainder of the deep dissection was made from a 12 o'clock to 3 o'clock position completely freeing the bursa and it was removed in toto. There was some tissue, which is abnormal, which is near the m argins of the bursa and this was removed. There was also some tissue at the very tip of the olecrano n, which was removed. The wound was then copiously irrigated with jet lavage and then checked for an y nonviable or infected material, none is seen. All bleeding was controlled using Bovie. Tourniquet was then dropped and as is typical, there was a significant amount of bleeding. At this point, the bleeders were all very small. No named or large caliber vessels. All the bleeding areas were curett ed and pressure was held for approximately 5 minutes. Following this, there was no longer any bleedi ng and appeared to be a dry wound bed. The wound was then packed with sterile saline, Kerlix, and AB Ds as well as was then placed in a well-padded posterior splint. She is awakened and take n to the recovery room in good condition. There were no complications other than considerations Anes thesia may have. /JAQUELINE Voice ID: [id number] Report ID: [id number]
[2017-11-04] MEDS: PIPER/TAZO/NS 3.375gm 3.375 GM/100 ML BAG IV SCH ×3 (01:27→16:22)
[2017-11-04] MEDS ORDERED: HYDROCORTISONE SUC 100 MG INJ IV ONE (06:39)
[2017-11-04] MEDS: MORPHINE 4 MG/ML SYR IV PRN ×3 (08:59→21:46)
--- NOTE | 2017-11-04 10:22 | P.PN ---
Subjective Date of Service: 11/04/17 Primary Care Provider: Dr. Geneva Frias Chief Complaint: infection Subjective: Tolerating diet, Improving This is a 42 y/o F that was admitted for bursitis and cellulitis. Dr. Almanza was consulted on case for possible surgery. Patient had surgery yesterday and is doing well post procedure. Family told me that during procedure she had vomited and there was some concern for aspiration. X-ray done at that time with no acute findings. Patient afebrile and without any shortness of breath at this time. Had mild dry cough. Stated that her arm is feeling better. Less pain and less erythema. Tolerating food without any nausea or discomfort <Ronal Kingsley - Last Filed: 11/04/17 10:17> Date of Service: 11/05/17 <Veronica Montelongo - Last Filed: 11/05/17 15:48> Review of Systems General: As per HPI Eyes: Unremarkable ENT: Unremarkable Respiratory: Unremarkable Cardiovascular: Unremarkable Gastrointestinal: Unremarkable Musculoskeletal: Other (mild pain to left elbow post procedure. Neurovascularly inact with good sensation ) Integumentary: Unremarkable Neurological: Unremarkable Lymphatics: Unremarkable <Ronal Kingsley - Last Filed: 11/04/17 10:17> Physical Examination - Vital Signs Temperature: 97.9 F Blood Pressure: 97/65 Pulse: 67 Respirations: 16 Pulse Ox (%): 94 - Physical Exam General: Alert, In no apparent distress, Oriented x3, Cooperative HEENT: PERRLA, Mucous membr. moist/pink, EOMI Neck: Supple, 2+ carotid pulse no bruit, JVD not distended, No Thyromegaly Respiratory: Clear to auscultation bilaterally, Normal air movement Cardiovascular: No edema, Normal pulses, Regular rate/rhythm, Normal S1 S2, Abnormal S3, No gallops, No rubs, No murmurs Capillary refill: <2 Seconds Gastrointestinal: Normal bowel sounds, Soft and benign, Non-distended, No tenderness Musculoskeletal: Erythema, Tenderness, Warmth, Other (Mild erythema, tenderness , warmth noted to left elbow. Packing in place from surgery) Integumentary: No rashes, No breakdown, No significant lesion, No tenderness/ swelling Neurological: Normal gait, Normal strength at 5/5 x4 extr, Normal tone, Sensation intact, Cranial nerves 3-12 intact, Normal reflexes 2+, Normal affect Lymphatics: No axilla or inguinal lymphadenopathy - Studies Medications List Reviewed: Yes <Ronal Kingsley - Last Filed: 11/04/17 10:17> Assessment And Plan - Current Problems (Diagnosis) (1) Bursitis due to bacterial infection Onset Date: 11/04/17 Current Visit: Yes Status: Acute - Plan As of now patient will continue on IV antibiotics. Pain and nausea medication as need. Will need another chest x-ray today to insure no aspiration is noted. Awaiting to here from Dr. Almanza to see if he will bring patient back for another surgery to the left elbow. Discharge Plan: Home Plan to discharge in: 48 Hours <Ronal Kingsley - Last Filed: 11/04/17 10:17> - Plan Agree with A&P. Transfer service to Dr. Frias in am <Veronica Montelongo - Last Filed: 11/05/17 15:48>
[2017-11-04] MEDS: NA CHLORIDE 0.9% 1,000 ML IV SCH ×2 (10:40→21:45)
[2017-11-04] MEDS: VANCOMYCIN 1.25 GM in NA CHLORIDE 0.9% 250 ML IVPB SCH ×2 (12:11→23:37)
--- NOTE | 2017-11-04 13:47 | PN ---
Date of Progress Note: 11/04/2017 The patient is seen today. She is in her dressing. Her dressing is clean, dry, and intact. Complai nts of pain are minimal. She is deaf; however, she is able to understand things as presented and als o with the help of written instructions. She is able to voice back all of the information given to h er today. At this time, we will have her n.p.o. after midnight. We will plan on second-look irrigat ion and debridement of the elbow with probable closure over drain tomorrow a.m. She will continue cu rrent antibiotics. It should be noted that her microbiology does demonstrate coagulase negative gram -positive cocci, most likely this is Staph aureus. She says she understands everything as presented. /JAQUELINE Voice ID: [id number] Report ID: [id number]
[2017-11-04] MEDS: ENOXAPARIN 40 MG/0.4 ML SQ SCH (16:22)
--- NOTE | 2017-11-04 16:37 | RAD REPORT ---
EXAM DESCRIPTION: Gloria Single View11/04/2017 4:30 pm CLINICAL HISTORY: Chest pain COMPARISON: November 03, 2017 FINDINGS: Mild right basilar lung opacities seen. The left lung is clear. The heart is normal size IMPRESSION: Mild right basilar opacity may represent mild aspiration
[2017-11-04] MEDS: ATORVASTATIN 20 MG TAB PO SCH (21:45)
[2017-11-05] MEDS: PIPER/TAZO/NS 3.375gm 3.375 GM/100 ML BAG IV SCH ×3 (01:59→18:02)
[2017-11-05] MEDS: MORPHINE 4 MG/ML SYR IV PRN ×4 (05:35→23:18)
[2017-11-05 06:33] LABS: Absolute Lymphocytes (CBC) 2.9 K/uL (0.7-4.9); Absolute Monocytes 0.8 K/uL (0.1-1.3); Absolute Neutrophil 5.5 K/uL (1.8-8.0); Basophils % 0.6 % (0-1.3); Eosinophils % 1.8 % (0-4.4); Hematocrit 34.6 % (36.0-45.0); Lymphocytes % 30.8 % (15.3-44.8); MCH 31.9 pg (27.0-35.0); MCV 97.3 fL (80-100); MPV 9.5 fL (7.6-11.3); Monocytes % 8.3 % (3.3-12.3); RBC Red Blood Cell Count 3.55 M/uL (3.86-4.86)
[2017-11-05 06:37] LABS: BUN Blood Urea Nitrogen 7 mg/dL (6-20); Bicarbonate 26 mEq/L (21-31); Glucose Level 88 mg/dL (65-120); Potassium 3.7 mEq/L (3.6-5.0); Sodium Level 141 mEq/L (135-145)
[2017-11-05] MEDS ORDERED: Ringers Lactate 1,000 ML IV ONE (06:44)
[2017-11-05] MEDS ORDERED: PROPOFOL 200 MG/20 ML VIAL IV ONE (07:35)
[2017-11-05] MEDS ORDERED: FENTANYL CITR 100 MCG/2 ML ONE (07:36)
[2017-11-05] MEDS ORDERED: ONDANSETRON HCL 40 MG/20 ML VIAL ONE (07:36)
[2017-11-05] MEDS ORDERED: MIDAZOLAM HCL 2 MG/2 ML INJ ONE (07:36)
[2017-11-05] MEDS ORDERED: LIDOCAINE 2% MPF 5 ML VIAL ONE (07:36)
[2017-11-05] MEDS ORDERED: ROCURONIUM 50 MG/5 ML VIAL IV ONE (07:37)
[2017-11-05] MEDS ORDERED: DEXAMETHASONE 10 MG/ML VIAL ONE (08:09)
[2017-11-05] MEDS ORDERED: GLYCOPYRROLATE 0.2 MG/ML SYR ONE (08:30)
[2017-11-05] MEDS ORDERED: NEOSTIGMINE 1 MG/ML -5 ML SYRINGE ONE (08:31)
--- NOTE | 2017-11-05 08:33 | P.BOP ---
Preoperative diagnosis: left elbow open wound s/p bursectomy Postoperative diagnosis: same Primary procedure: left elbow wound I&D, sharp Estimated blood loss: 20 ccs Anesthesia: General Transferred to: Recovery Room Condition: Good
[2017-11-05] MEDS: MEPERIDINE HCL 50 MG/ML AMP ONE ×4 (08:53→09:14)
[2017-11-05] MEDS ORDERED: KETOROLAC 30 MG/ML INJ ONE (09:02)
[2017-11-05] MEDS: VANCOMYCIN 1.25 GM in NA CHLORIDE 0.9% 250 ML IVPB SCH ×2 (13:11→23:14)
[2017-11-05] MEDS: NA CHLORIDE 0.9% 1,000 ML IV SCH ×2 (13:20→19:12)
--- NOTE | 2017-11-05 14:01 | P.PN ---
Subjective Date of Service: 11/05/17 Primary Care Provider: Dr. Geneva Frias Chief Complaint: infection Subjective: New changes (Patient has a drain in her left elbow) Review of Systems 10-point ROS is otherwise unremarkable Musculoskeletal: Arm Pain (left elbow) Physical Examination - Vital Signs Temperature: 97.4 F Blood Pressure: 104/70 Pulse: 63 Respirations: 18 Pulse Ox (%): 94 - Physical Exam General: Alert, In no apparent distress HEENT: Atraumatic, PERRLA, EOMI Neck: Supple, JVD not distended Respiratory: Clear to auscultation bilaterally, Normal air movement Cardiovascular: Regular rate/rhythm, Normal S1 S2 Gastrointestinal: Normal bowel sounds, No tenderness Musculoskeletal: No tenderness, Other (Left elbow with drain inserted) Integumentary: No rashes Neurological: Normal speech, Normal tone, Normal affect Lymphatics: No axilla or inguinal lymphadenopathy - Studies Medications List Reviewed: Yes Assessment & Plan - Problems (Diagnosis) (1) Bursitis due to bacterial infection Onset Date: 11/04/17 Current Visit: Yes Status: Acute Plan: Drain in place. On zosyn. Possible removal tomorrow. Will discharge after removal of the drain (2) Deafness Current Visit: Yes Status: Acute Plan: Patient at the bedside is able to translate for me. Qualifiers: Laterality: bilateral Qualified Code(s): H91.93 - Unspecified hearing loss , bilateral (3) Tobacco abuse counseling Current Visit: Yes Status: Acute Plan: Have discussed smoking cessation at length. Patient took this with good humor today. Setting a quit date, weaning and nicotine replacement were all discussed. As is also a smoker may benefit from this. Discharge Plan: Home Plan to discharge in: 48 Hours - Code Status/Comfort Care Code Status Assessed: No Code Status: Full Code Physician Review: Patient Assessed, Agree with Above Assessment and Plan Critical Care: No Time Spent Managing Pts Care (In Minutes): 25
[2017-11-05] MEDS: ENOXAPARIN 40 MG/0.4 ML SQ SCH (18:02)
--- NOTE | 2017-11-05 18:42 | OP ---
Date of Procedure: 11/05/2017 Surgeon: Alcides Almanza MD Preoperative Diagnosis: Left elbow open wound after bursectomy and irrigation and debridement for se ptic olecranon bursitis. Postoperative Diagnosis: Left elbow open wound after bursectomy and irrigation and debridement for s eptic olecranon bursitis. Procedure: Left elbow sharp irrigation and debridement using knife as well as a curette and rongeur and closure over drain. Estimated Blood Loss: 20 cc. Complications: There were no complications. Specimen: No pathology specimen sent. Indication For Operation: Ms. Collins is a patient, who had Staph bacteria in her olecranon bursa, which was excised 2 days ago by me with extensive irrigation and debridement. This was left packed o pen. She now returns for a second-look irrigation, debridement, and probable closure over drain. Al ghada risks, benefits, and alternatives of procedure have been discussed with her. For further indicatio ns, please refer to her previous operative note. Description Of Procedure: The patient was taken to the operating room and placed in the supine posit ion. General anesthesia was obtained by staff. Following this, she was rolled right side down on th e beanbag. Beanbag is hardened and all of her bony prominences were checked by Anesthesia. Followin g this, her left upper extremity was prepped and draped in usual sterile fashion for the procedure. The wound was then copiously irrigated with 0.5 L of sterile saline and was then inspected. There wa s found to be some exudative change, however, there was no purulent material, no sign of any loculate d abscess, also no sign of any necrotic tissue with the exception of the skin, which does have an are a, which would be consistent with the tip of the olecranon, on its lateral aspect did have approximat jodi a cm and half area of necrosis. This was excised elliptically using a knife. Following this, th e remainder of the 2 L sterile saline were used for irrigation and was found to be very clean. [facility] Hem[facility] was then placed exiting distally. The wound was then closed using interrupted hori zontal mattress 2-0 nylon sutures. This was followed by application of an Aquacel dressing, followed by soft roll and a splint. The patient was then awakened and taken to recovery room in good conditi on. There were no complications. SE/MODL Voice ID: [id number] Report ID: [id number]
[2017-11-05] MEDS: ATORVASTATIN 20 MG TAB PO SCH (20:04)
[2017-11-06] MEDS: PIPER/TAZO/NS 3.375gm 3.375 GM/100 ML BAG IV SCH ×2 (00:08→09:28)
[2017-11-06] MEDS: NA CHLORIDE 0.9% 1,000 ML IV SCH ×3 (02:07→21:29)
[2017-11-06] MEDS: MORPHINE 4 MG/ML SYR IV PRN ×4 (04:16→21:30)
[2017-11-06 05:46] LABS: Potassium 3.9 mEq/L (3.6-5.0)
[2017-11-06 05:53] LABS: Absolute Lymphocytes (CBC) 2.1 K/uL (0.7-4.9); Absolute Monocytes 1.1 K/uL (0.1-1.3); Basophils % 0.3 % (0-1.3); Eosinophils % 0.3 % (0-4.4); Hematocrit 33.2 % (36.0-45.0); Lymphocytes % 13.5 % (15.3-44.8); MCV 96.4 fL (80-100); MPV 9.6 fL (7.6-11.3); Monocytes % 7.1 % (3.3-12.3); RBC Red Blood Cell Count 3.45 M/uL (3.86-4.86)
--- NOTE | 2017-11-06 11:47 | P.PN ---
Subjective Date of Service: 11/06/17 Primary Care Provider: Dr. Geneva Frias Chief Complaint: infection Subjective: Improving Review of Systems 10-point ROS is otherwise unremarkable Musculoskeletal: Arm Pain Physical Examination - Vital Signs Temperature: 98.0 F Blood Pressure: 125/75 Pulse: 74 Respirations: 17 Pulse Ox (%): 96 - Physical Exam General: Alert, In no apparent distress HEENT: Atraumatic, PERRLA, EOMI Neck: Supple, JVD not distended Respiratory: Clear to auscultation bilaterally, Normal air movement Cardiovascular: Regular rate/rhythm, Normal S1 S2 Gastrointestinal: Normal bowel sounds, No tenderness Musculoskeletal: No tenderness Integumentary: No rashes Neurological: Normal speech, Normal tone, Normal affect Lymphatics: No axilla or inguinal lymphadenopathy - Studies Medications List Reviewed: Yes Assessment & Plan - Problems (Diagnosis) (1) Bursitis due to bacterial infection Onset Date: 11/04/17 Current Visit: Yes Status: Acute Plan: Drain in place. Minimal drainage. MRSA in the culture. D/c zosyn. Will continue iv vanco for 1 week. Start doxycycline for synergistic effect. Will discuss with Dr. Almanza (2) Deafness Current Visit: Yes Status: Acute Plan: Patient at the bedside is able to translate for me. Qualifiers: Laterality: bilateral Qualified Code(s): H91.93 - Unspecified hearing loss , bilateral (3) Tobacco abuse counseling Current Visit: Yes Status: Acute Plan: Have discussed smoking cessation at length. Patient took this with good humor today. Setting a quit date, weaning and nicotine replacement were all discussed. As is also a smoker may benefit from this. Discharge Plan: Home Plan to discharge in: 24 Hours - Code Status/Comfort Care Code Status Assessed: No Code Status: Full Code Physician Review: Patient Assessed, Agree with Above Assessment and Plan Critical Care: No Time Spent Managing Pts Care (In Minutes): 25
[2017-11-06] MEDS: VANCOMYCIN 1.25 GM in NA CHLORIDE 0.9% 250 ML IVPB SCH (12:40)
[2017-11-06] MEDS: ENOXAPARIN 40 MG/0.4 ML SQ SCH (18:25)
[2017-11-06] MEDS ORDERED: clonazePAM 0.5 MG TAB PO ONE (19:00)
[2017-11-06] MEDS: DOXYCYCLINE 100 MG CAP PO SCH (21:29)
[2017-11-06] MEDS: ATORVASTATIN 20 MG TAB PO SCH (21:30)
[2017-11-06] MEDS ORDERED: NA CHLORIDE 0.9% 0 ML ONE (23:14)
[2017-11-07] MEDS: VANCOMYCIN 1.25 GM in NA CHLORIDE 0.9% 250 ML IVPB SCH (00:55)
[2017-11-07] MEDS: MORPHINE 4 MG/ML SYR IV PRN (05:34)
--- NOTE | 2017-11-07 05:35 | PN ---
Date of Progress Note: 11/06/2017 The patient is seen today. She is in her splint as well as dressing. She has had her dressing previ ously removed and her drain discontinued. Her cultures returned methicillin-resistant Staphylococcus aureus, although does appear to be sensitive to Bactrim and tetracycline as well as Levaquin. I spo ke with Dr. Frias regarding this. Most likely, we will keep another day for another round of IV anti biotics. There is some thought about some opacity in her lungs. Her white count is slightly increas ed, although she has been afebrile, and her pain level is definitely controlled. I think most likely she will be discharged tomorrow in her dressing. All of her questions have otherwise been answered today. POPEYE Voice ID: [id number] Report ID: [id number]
[2017-11-07 05:54] LABS: Absolute Lymphocytes (CBC) 2.5 K/uL (0.7-4.9); Absolute Monocytes 0.9 K/uL (0.1-1.3); Absolute Neutrophil 7.5 K/uL (1.8-8.0); Basophils % 1.1 % (0-1.3); Eosinophils % 1.9 % (0-4.4); Hematocrit 31.5 % (36.0-45.0); Lymphocytes % 22.2 % (15.3-44.8); MCH 32.9 pg (27.0-35.0); MCV 96.2 fL (80-100); MPV 9.5 fL (7.6-11.3); Monocytes % 8.3 % (3.3-12.3); RBC Red Blood Cell Count 3.27 M/uL (3.86-4.86)
[2017-11-07 06:08] LABS: BUN Blood Urea Nitrogen 8 mg/dL (6-20); Bicarbonate 25 mEq/L (21-31); Glucose Level 80 mg/dL (65-120); Magnesium 1.8 mg/dL (1.8-2.5); Potassium 3.7 mEq/L (3.6-5.0); Sodium Level 140 mEq/L (135-145)
[2017-11-07] MEDS ORDERED: MAGNESIUM SULFATE 1 gm IVPB 1 GM/100 ML BAG IV ONE (07:00)
[2017-11-07] MEDS: DOXYCYCLINE 100 MG CAP PO SCH (08:18)
--- NOTE | 2017-11-07 09:53 | P.DS ---
Admission Date: 11/01/17 Discharge Date: 11/07/17 Primary Care Provider: Dr. Geneva Frias Disposition: ROUTINE DISCHARGE Discharge Condition: GOOD Reason for Admission: infection - Problems (1) Bursitis due to bacterial infection Onset Date: 11/04/17 Current Visit: Yes Status: Acute (2) Deafness Current Visit: Yes Status: Acute Qualifiers: Laterality: bilateral Qualified Code(s): H91.93 - Unspecified hearing loss , bilateral (3) Tobacco abuse counseling Current Visit: Yes Status: Acute Brief History of Present Illness: patient was admitted by hospitalist for worsening cellulitis. She had been started on po antibiotics from a previous er visit. Was admitted and seen by Dr. Almanza [facility] Course: Patient had surgical excision of the bursa. She was found to have MRSA in the surgical culture. She was on Vancomycin for her stay. Can be discharged on doxycycline. There was a possible aspiration during surgery. However she denies any cough and shortness of breath. Her WBC are trending downwards. She was also on antibiotics during this time. As she has no fevers and will be discharged on doxycycline. We can observe. Discussed with the and patient(he translated for me) That if she has any fever, cough or shortness of breath they can call my office. We can consider clindamycin at that time. Vital Signs/Physical Exam: Temp Pulse Resp BP Pulse Ox 98.0 F 59 20 130/77 94 11/07/17 04:00 11/07/17 04:00 11/07/17 04:00 11/07/17 04:00 11/07/17 04:00 General: Alert, In no apparent distress HEENT: Atraumatic, PERRLA, EOMI Neck: Supple, JVD not distended Respiratory: Clear to auscultation bilaterally, Normal air movement Cardiovascular: Regular rate/rhythm, Normal S1 S2 Gastrointestinal: Normal bowel sounds, No tenderness Musculoskeletal: No tenderness Integumentary: No rashes Neurological: Normal speech, Normal tone, Normal affect Lymphatics: No axilla or inguinal lymphadenopathy Laboratory Data at Discharge: WBC 11.3 K/uL (4.3-10.9) H D 11/07/17 05:07 Hgb 10.8 g/dL (12.0-15.0) L 11/07/17 05:07 Hct 31.5 % (36.0-45.0) L 11/07/17 05:07 Plt Count 267 K/uL (152-406) 11/07/17 05:07 Sodium 140 mEq/L (135-145) 11/07/17 05:07 Potassium 3.7 mEq/L (3.6-5.0) 11/07/17 05:07 BUN 8 mg/dL (6-20) 11/07/17 05:07 Creatinine 0.55 mg/dL (0.44-1.00) 11/07/17 05:07 Glucose 80 mg/dL (65-120) 11/07/17 05:07 Magnesium 1.8 mg/dL (1.8-2.5) 11/07/17 05:07 Total Bilirubin 0.6 mg/dL (0.3-1.2) 11/02/17 04:56 AST 21 IU/L (10-42) 11/02/17 04:56 ALT 27 IU/L (10-60) 11/02/17 04:56 Alkaline Phosphatase 68 IU/L (42-121) 11/02/17 04:56 Home Medications: Atorvastatin Calcium [Lipitor] 20 mg PO BEDTIME 11/01/17 Acetaminophen [Acetaminophen Extra Strength] 500 mg PO TID 30 Days #90 tablet Doxycycline Monohydrate 100 mg PO BID 8 Days #20 capsule 11/07/17 Tramadol HCl [Ultram] 50 mg PO TIDP PRN 10 Days #20 tablet 11/07/17 New Medications: Acetaminophen [Acetaminophen Extra Strength] 500 mg PO TID 30 Days #90 tablet Doxycycline Monohydrate 100 mg PO BID 8 Days #20 capsule Tramadol HCl [Ultram] 50 mg PO TIDP PRN 10 Days #20 tablet PRN Reason: Pain Diet: Regular Activity: Ad eleazar Followup: Alcides Almanza MD [ACTIVE - CAN ADMIT] - 1 Week Rocky Frias MD [Primary Care Provider] - 1-2 Weeks Time spent managing pt's care (in minutes): 40
[2017-11-07] MEDS ORDERED: TRAMADOL HCL 50 MG TAB PO ONE (11:05)
== END 2017-11-07 13:09 | disposition home or self-care (01) | DRG 501 ==
LOC: ER 09:07 → ERHOLD 11:34 → 2ND 13:35
PROVIDERS: ADMIT Internal Medicine; ATTEND Internal Medicine
PROC: 0MT40ZZ Resection of Left Elbow Bursa and Ligament, Open Approach (ICD-10-PCS; principal; 2017-11-03 08:00)
PROC: 0XQC0ZZ Repair Left Elbow Region, Open Approach (ICD-10-PCS; 2017-11-05)
DX: M71.122 Other infective bursitis, left elbow (principal); L03.114 Cellulitis of left upper limb; B95.62 Methicillin resistant Staphylococcus aureus infection as the cause of diseases classified elsewhere; H91.93 Unspecified hearing loss, bilateral; M71.022 Abscess of bursa, left elbow; E78.5 Hyperlipidemia, unspecified; F17.210 Nicotine dependence, cigarettes, uncomplicated
CPT/HCPCS: 36415; 71045; 76882; 80048; 80053; 80202; 81003; 81015; 81025; 83735; 84145; 85025; 87040; 87070; 87075; 87077; 87186; 87205; 88304; 88305; 96365; 99284; 99285; J0330; J0696; J1100; J1650; J1720; J2175; J2250; J2405; J2543; J2710; J3010; J3370; J7030

== ENCOUNTER 2017-11-22 09:56 | Emergency (ER) | payer OTHER ==
[2017-11-22] MEDS ORDERED: VANCOMYCIN 1 GM/250 ML BAG ONE (10:23)
[2017-11-22] MEDS ORDERED: HYDROCODONE/APAP 10/325 TAB ONE (10:32)
[2017-11-22 10:40] LABS: Absolute Lymphocytes (CBC) 1.5 K/uL (0.7-4.9); Absolute Monocytes 0.6 K/uL (0.1-1.3); Absolute Neutrophil 6.6 K/uL (1.8-8.0); Basophils % 0.7 % (0-1.3); Eosinophils % 2.5 % (0-4.4); Hematocrit 41.1 % (36.0-45.0); Lymphocytes % 16.6 % (15.3-44.8); MCH 32.5 pg (27.0-35.0); MCV 94.9 fL (80-100); MPV 9.5 fL (7.6-11.3); Monocytes % 6.7 % (3.3-12.3); RBC Red Blood Cell Count 4.33 M/uL (3.86-4.86)
[2017-11-22 11:00] LABS: ALT/SGPT 30 U/L (12-78); AST/SGOT 17 U/L (15-37); Albumin 3.5 g/dL (3.4-5.0); Alkaline Phosphatase 77 U/L (45-117); BUN Blood Urea Nitrogen 7 mg/dL (7-18); Bicarbonate 23 mmol/L (21-32); Bilirubin Total 0.3 mg/dL (0.2-1.0); Glucose Level 102 mg/dL (74-106); Protein, Total 6.9 g/dL (6.4-8.2); Sodium Level 139 mmol/L (136-145)
--- NOTE | 2017-11-22 12:21 | ER ---
Nurse's Notes [facility] Name: Ekta Collins Age: 42 yrs Sex: Female : 1975 Arrival Date: 11/22/2017 Time: 09:58 Bed 5 Private MD: Rocky Frias Diagnosis: Cellulitis of the left arm Presentation: 11/22 10:07 Presenting complaint: Patient states: pain to L elbow that began yesterday after having ss sutures removed from a previous surgery to drain an abscess by Dr. Almanza. Pt is currently taking doxycycline. Transition of care: patient was not received from another setting of care. Onset of symptoms was November 21, 2017. Risk Assessment: Do you want to hurt yourself or someone else? Patient reports no desire to harm self or others. Initial Sepsis Screen: Does the patient meet any 2 criteria? No. Patient's initial sepsis screen is negative. Does the patient have a suspected source of infection? Yes: Skin breakdown/wound. Care prior to arrival: None. 10:07 Method Of Arrival: Ambulatory ss 10:07 Acuity: FRENCH 3 ss Historical: - Allergies: 10:09 No Known Allergies; ss - PMHx: 10:09 Deaf; Hyperlipidemia; ss - PSHx: 10:09 I\T\D; ss - Immunization history:: Adult Immunizations up to date. - Social history:: Smoking status: Patient/guardian denies using tobacco. - Ebola Screening: : No symptoms or risks identified at this time. Screenin:15 Abuse screen: Denies threats or abuse. Denies injuries from another. Nutritional hb screening: No deficits noted. Tuberculosis screening: No symptoms or risk factors identified. Fall Risk None identified. Assessment: 10:05 General: Appears in no apparent distress. uncomfortable, Behavior is calm, cooperative. hb Pain: Pain currently is 8 out of 10 on a pain scale. Neuro: Level of Consciousness is awake, alert, obeys commands, Oriented to person, place, time, situation. Cardiovascular: Capillary refill < 3 seconds Patient's skin is warm and dry. Respiratory: Airway is patent Trachea midline Respiratory effort is even, unlabored, Respiratory pattern is regular, symmetrical. Musculoskeletal:. Musculoskeletal: surgical wound to left elbow, dressing dry and intact. 11:00 Reassessment: Patient appears in no apparent distress at this time. Patient and/or hb family updated on plan of care and expected duration. Pain level reassessed. Patient is alert, oriented x 3, equal unlabored respirations, skin warm/dry/pink. 11:40 Reassessment: Patient appears in no apparent distress at this time. No changes from hb previously documented assessment. Patient and/or family updated on plan of care and expected duration. Pain level reassessed. Patient is alert, oriented x 3, equal unlabored respirations, skin warm/dry/pink. 12:16 Reassessment: Discharge ordered, IV med infusing at this time. NAD. VSS. Family remains hb at bedside. Vital Signs: 10:09 BP 123 / 79; Pulse 59; Resp 16; Pulse Ox 98% on R/A; Weight 71.21 kg; Height 5 ft. 8 ss in. (172.72 cm); Pain 8/10; 10:15 Temp 98.0(TE); ss 11:00 BP 126 / 76; Pulse 58; Resp 15; Pulse Ox 100% on R/A; Pain 3/10; hb 12:00 BP 103 / 73; Pulse 56; Resp 17; Pulse Ox 99% on R/A; dh3 10:09 Body Mass Index 23.87 (71.21 kg, 172.72 cm) ss ED Course: 09:58 Patient arrived in ED. sb2 09:59 Rocky Frias MD is Private Physician. sb2 10:00 Jerry Bustamante PA is [facility]. jmm 10:00 Toan Ruiz MD is Attending Physician. [facility] 10:08 Triage completed. ss 10:09 Arm band placed on right wrist. ss 10:15 Patient has correct armband on for positive identification. Placed in gown. Bed in low hb position. Call light in reach. Side rails up X 1. 10:30 Initial lab(s) drawn, by tn, sent to lab. First set of blood cultures drawn by me. 3 Inserted saline lock: 20 gauge in right antecubital area, using aseptic technique. Blood collected. 10:41 Nitza Rae, JAYSON is Primary Nurse. hb 10:46 Second set of blood cultures drawn by me, by venipuncture 23G to left ac. 3 12:20 Alcides Almanza MD is Referral Physician. [facility] 13:05 No provider procedures requiring assistance completed. IV discontinued, intact, ss bleeding controlled, No redness/swelling at site. Pressure dressing applied. Administered Medications: 10:25 Drug: [place] 10 mg-325 mg 1 tabs Route: PO; sv 13:06 Follow up: Response: No adverse reaction; Pain is decreased ss 11:11 Drug: vancoMYCIN 1 grams Route: IVPB; Infused Over: 2 hrs; Site: right antecubital; sv 13:06 Follow up: IV Status: Completed infusion ss Outcome: 12:20 Discharge ordered by . silverio 13:05 Discharged to home ambulatory, with significant other. ss 13:05 Condition: good 13:05 Discharge instructions given to patient, significant other, Instructed on discharge instructions, follow up and referral plans. medication usage, Demonstrated understanding of instructions, follow-up care, medications, Prescriptions given X 1. 13:07 Patient left the ED. Signatures: Paula Rush RN RN Jerry Bustamante PA PA jmm Smirch, Shelby, RN RN Nitza Rae RN RN Mayte Garza 3 Radha Rodriguez sb2 Corrections: (The following items were deleted from the chart) 10:08 10:07 Initial Sepsis Screen: Does the patient meet any 2 criteria? No. Patient's ss initial sepsis screen is negative. Does the patient have a suspected source of infection? No. Patient's initial sepsis screen is negative. ss
--- NOTE | 2017-11-22 12:21 | EDPHYS ---
Physician Documentation [facility] Name: Ekta Collins Age: 42 yrs Sex: Female : 1975 Arrival Date: 11/22/2017 Time: 09:58 Bed 5 Private MD: Rocky Frias ED Physician Toan Ruiz HPI: 11/22 10:20 This 42 yrs old Female presents to ER via Ambulatory with complaints of Arm jmm Pain. 10:20 The patient or guardian complains of pain, that is acute. The complaints affect the jmm left elbow. Onset: The symptoms/episode began/occurred gradually, 3 weeks ago. This is a 42 year old female that presents to the ED with left elbow redness and swelling worsening after having her sutures removed yesterday at Dr. Ramirez office. [facility]. The patient is currently taking doxycycline. Patient denies measured fever but states she began to feel warm today. Patient mainly complains of worsening pain. . Historical: - Allergies: 10:09 No Known Allergies; ss - PMHx: 10:09 Deaf; Hyperlipidemia; ss - PSHx: 10:09 I\T\D; ss - Immunization history:: Adult Immunizations up to date. - Social history:: Smoking status: Patient/guardian denies using tobacco. - Ebola Screening: : No symptoms or risks identified at this time. ROS: 10:20 Eyes: Negative for injury, pain, redness, and discharge, Cardiovascular: Negative for jmm chest pain, palpitations, and edema, Respiratory: Negative for shortness of breath, cough, wheezing, and pleuritic chest pain. 10:20 Constitutional: Positive for fever. 10:20 MS/extremity: Positive for pain, swelling. 10:20 Skin: Positive for redness. 10:20 Neuro: Negative for weakness. 10:20 All other systems are negative. Exam: 10:20 Constitutional: This is a well developed, well nourished patient who is awake, alert, jmm and in no acute distress. Cardiovascular: Regular rate and rhythm. No gallops, murmurs, or rubs. Full/Equal distal pulses. Respiratory: Lungs have equal breath sounds bilaterally, clear to auscultation. No rales, rhonchi or wheezes noted. No increased work of breathing, no retractions or nasal flaring. 10:20 Musculoskeletal/extremity: FROM appreciated to the left elbow, compartments soft, full distal radial pulse, NVI. 10:20 Skin: erythema noted to the left elbow superior to the olecranon. tenderness on palpation, no drainage appreciated. . 10:20 Neuro: Orientation: is normal, Mentation: is normal, Memory: is normal, Gait: is steady. Vital Signs: 10:09 BP 123 / 79; Pulse 59; Resp 16; Pulse Ox 98% on R/A; Weight 71.21 kg; Height 5 ft. 8 ss in. (172.72 cm); Pain 8/10; 10:15 Temp 98.0(TE); ss 11:00 BP 126 / 76; Pulse 58; Resp 15; Pulse Ox 100% on R/A; Pain 3/10; hb 12:00 BP 103 / 73; Pulse 56; Resp 17; Pulse Ox 99% on R/A; dh3 10:09 Body Mass Index 23.87 (71.21 kg, 172.72 cm) MDM: 10:04 Patient medically screened. [facility] 10:20 Differential diagnosis: cellulitis, bursitis. Data reviewed: vital signs, nurses notes. [facility] 12:17 Data reviewed: lab test result(s). Counseling: I had a detailed discussion with the [facility] patient and/or guardian regarding: the historical points, exam findings, and any diagnostic results supporting the discharge/admit diagnosis, the presence of at least one elevated blood pressure reading (>120/80) during this emergency department visit, the need for outpatient follow up, to return to the emergency department if symptoms worsen or persist or if there are any questions or concerns that arise at home. ED course: The patient is non toxic in appearance in the ED. The patient is currently on antibiotics which should be effective for the patient's strain of MRSA. I discussed the patient's presentation with Dr. Almanza. Dr. Ruiz evaluated the patient as well. Labs are WNL. Patient will be discharged and is advised to finish antibiotics. Otherwise given strict return precautions. Patient and family understood and agree with the plan of care. . 11/22 10:10 Order name: CBC with Diff; Complete Time: 11:03 [facility] 11/22 10:10 Order name: CMP; Complete Time: 11: [facility] 11/22 10:10 Order name: Procalcitonin; Complete Time: 11:27 [facility] 11/22 10:10 Order name: Blood Culture Adult (2) [facility] 11/22 10:10 Order name: Saline Lock; Complete Time: 10:34 [facility] 11/22 11:11 Order name: Vital Signs; Complete Time: 11:45 [facility] Administered Medications: 10:25 Drug: [place] 10 mg-325 mg 1 tabs Route: PO; sv 13:06 Follow up: Response: No adverse reaction; Pain is decreased 11:11 Drug: vancoMYCIN 1 grams Route: IVPB; Infused Over: 2 hrs; Site: right antecubital; sv 13:06 Follow up: IV Status: Completed infusion ss Disposition: 18:17 Co-signature as Attending Physician, Toan Ruiz MD. rn Disposition: 11/22/17 12:20 Discharged to Home. Impression: Cellulitis of the left arm. - Condition is Stable. - Discharge Instructions: Cellulitis. - Prescriptions for Ultram 50 mg Oral Tablet - take 1 tablet by ORAL route every 6 hours As needed; 20 tablet. - Medication Reconciliation Form, Thank You Letter, Antibiotic Education, Prescription Opioid Use form. - Follow up: Alcides Almanza MD; When: 2 - 3 days; Reason: Continuance of care. Signatures: Dispatcher [employer] Paula Lama, RN RN Jerry Damon PA PA [facility] Toan Ruiz MD MD rn Smirch, Shelby, RN RN ss Baxter, Heather, RN RN Corrections: (The following items were deleted from the chart) 13:07 12:20 11/22/2017 12:20 Discharged to Home. Impression: Cellulitis of the left arm. ss Condition is Stable. Forms are Medication Reconciliation Form, Thank You Letter, Antibiotic Education, Prescription Opioid Use. Follow up: Alcides Almanza; When: 2 - 3 days; Reason: Continuance of care. [facility]
== END 2017-11-22 13:07 | disposition home or self-care (01) ==
LOC: ER 09:56
DX: L03.114 Cellulitis of left upper limb (principal); H91.90 Unspecified hearing loss, unspecified ear; E78.5 Hyperlipidemia, unspecified
CPT/HCPCS: 36415; 80053; 84145; 85025; 87040 ×2; 96365; 96366; 99284; J3370

== ENCOUNTER 2021-05-01 06:31 | Emergency (ER) | payer OTHER ==
[2021-05-01 06:58] LABS: Urine Blood Negative (Negative); Urine Glucose Negative (Negative); Urine Protein Negative (Negative); Urine pH 7.5 (5.0-7.0)
[2021-05-01] MEDS ORDERED: KETOROLAC 30 MG/ML INJ ONE (07:05)
[2021-05-01 07:12] LABS: Urine Bacteria 20-50 /HPF (<20); Urine RBC NONE SEEN /HPF (NONE SEEN)
[2021-05-01 07:16] LABS: Absolute Lymphocytes (CBC) 1.3 K/uL (0.7-4.9); Basophils % 0.5 % (0-1.3); Hematocrit 40.1 % (36.0-45.0); Lymphocytes % 16.1 % (15.3-44.8); MPV 8.7 fL (7.6-11.3)
[2021-05-01 07:24] LABS: BUN Blood Urea Nitrogen 13 mg/dL (7-18); Bicarbonate 24 mmol/L (21-32); Glucose Level 113 mg/dL (74-106); Sodium Level 141 mmol/L (136-145)
[2021-05-01] MEDS ORDERED: ONDANSETRON 4 MG/2 ML VIAL ONE (08:11)
[2021-05-01] MEDS ORDERED: FENTANYL CITR 100 MCG/2 ML ONE (08:11)
--- NOTE | 2021-05-01 08:27 | RAD REPORT ---
EXAM DESCRIPTION: CT - Stone Protocol - 05/01/2021 7:39 am CLINICAL HISTORY: Flank pain. PAIN COMPARISON: No comparisons TECHNIQUE: Axial images were obtained without oral or IV contrast. Lack of contrast limits solid org an and vascular assessment. The [id number] spans the entirety of the system partially obscuring uppermost abdomen and lung bases. Coronal reformatted images were obtained and reviewed. All CT scans are performed using dose optimization technique as appropriate and may include automated exposure control or mA/KV adjustment according to patient size. FINDINGS: The lower lung campbell are clear. Imaged portions of the liver and spleen show no suspicious findings on non-contrast imaging. The panc reas and adrenal glands are normal. No pathologic lymphadenopathy in the abdomen or pelvis. No urinary tract stones or obstructive uropathy. 18 mm exophytic cyst is seen posterosuperior left ki dney. No bowel obstruction, free air, free fluid or abscess. Normal appendix noted. Chronic bilateral spondylolysis L5-S1. IMPRESSION: No urinary tract stones or obstructive uropathy.
--- NOTE | 2021-05-01 09:06 | EDPHYS ---
Physician Documentation [facility] Name: Ekta Collins Age: 45 yrs Sex: Female : 1975 Arrival Date: 05/01/2021 Time: 06:34 Bed 14 Private MD: ED Physician Riky Liu HPI: 05/01 06:52 This 45 yrs old Female presents to ER via Ambulatory with complaints of Flank Pain. kb 06:52 The patient presents with abdominal pain right lower lateral abd and groin. Onset: The kb symptoms/episode began/occurred 2 month(s) ago. The symptoms do not radiate. Associated signs and symptoms: Pertinent positives: dysuria, Pertinent negatives: constipation, diarrhea, fever, nausea, vomiting. The symptoms are described as intermittent. Modifying factors: The symptoms are alleviated by nothing, the symptoms are aggravated by nothing. Severity of pain: At its worst the pain was moderate in the emergency department the pain is unchanged. The patient has not experienced similar symptoms in the past. The patient has not recently seen a physician. 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 - Social history:: Smoking status: Patient denies any tobacco usage or history of. ROS: 06:51 Constitutional: Negative for fever, chills, and weight loss. kb 06:51 Abdomen/GI: Positive for abdominal pain, Negative for nausea, vomiting, and diarrhea. 06:51 : Positive for burning with urination. 06:51 All other systems are negative. Exam: 06:51 Constitutional: This is a well developed, well nourished patient who is awake, alert, kb and in no acute distress. Head/Face: Normocephalic, atraumatic. ENT: Moist Mucous membranes Respiratory: Respirations even and unlabored. No increased work of breathing. Back: No spinal tenderness. No costovertebral tenderness. Full range of motion. Skin: Warm, dry with normal turgor. Normal color. MS/ Extremity: Pulses equal, no cyanosis. Neurovascular intact. Full, normal range of motion. Neuro: Awake and alert, GCS 15, oriented to person, place, time, and situation. Moves all extremities. Normal gait. Psych: Awake, alert, with orientation to person, place and time. Behavior, mood, and affect are within normal limits. 06:51 Abdomen/GI: Inspection: abdomen appears normal, Bowel sounds: normal, Palpation: soft, in all quadrants, mild abdominal tenderness, in the posterior aspect of right lateral abdomen, anterior aspect of right lateral abdomen and right lower quadrant, right lateral lower abd and right groin. Vital Signs: 06:38 BP 114 / 88; Pulse 82; Resp 18; Temp 98.5; Pulse Ox 99% on R/A; Weight 68.04 kg; Height mr2 5 ft. 1 in. (154.94 cm); Pain 7/10; 07:32 BP 113 / 73; Pulse 59; Resp 17; Pulse Ox 98% on R/A; tw2 09:13 BP 110 / 74; Pulse 61; Resp 17; Pulse Ox 96% on R/A; tw2 06:38 Body Mass Index 28.34 (68.04 kg, 154.94 cm) mr2 MDM: 06:36 Patient medically screened. kb 06:52 Data reviewed: vital signs, nurses notes. Data interpreted: Pulse oximetry: on room air kb is 99 %. Interpretation: normal. 09:04 Counseling: I had a detailed discussion with the patient and/or guardian regarding: the kb historical points, exam findings, and any diagnostic results supporting the discharge/admit diagnosis, lab results, radiology results, the need for outpatient follow up, a family practitioner, to return to the emergency department if symptoms worsen or persist or if there are any questions or concerns that arise at home. 05/01 06:39 Order name: Urine Microscopic Only; Complete Time: 07:23 kb 05/01 06:45 Order name: Basic Metabolic Panel kb 05/01 06:45 Order name: CBC with Diff; Complete Time: 07:23 kb 05/01 06:45 Order name: Basic Metabolic Panel; Complete Time: 07:31 EDMS 05/01 06:57 Order name: Urine Dipstick-Ancillary; Complete Time: 07:01 EDMS 05/01 07:03 Order name: Urine --Ancillary (enter results); Complete Time: 07:23 oe 12/06 06:39 Order name: CT Stone Protocol; Complete Time: 08:58 kb 05/01 06:39 Order name: Urine Dipstick-Ancillary (obtain specimen); Complete Time: 07:19 kb 05/01 06:45 Order name: IV Saline Lock; Complete Time: 07:01 kb 05/01 07:13 Order name: Urine Culture EDMS 05/01 06:45 Order name: Labs collected and sent; Complete Time: 07:01 kb Administered Medications: 07:00 Drug: Ketorolac 30 mg Route: IVP; Site: right antecubital; mr2 08:09 Follow up: Response: No adverse reaction; Pain is unchanged, physician notified tw2 08:14 Drug: Zofran (Ondansetron) 4 mg Route: IVP; Site: right antecubital; tw2 09:12 Follow up: Response: No adverse reaction tw2 08:16 Drug: fentaNYL (PF) 25 mcg {Note: RASS 0.} Route: IVP; Site: right antecubital; tw2 09:12 Follow up: Response: No adverse reaction; Pain is decreased; RASS: Alert and Calm (0) tw2 09:08 Drug: Rocephin (cefTRIAXone) 1 grams Route: IV; Rate: calculated rate; Site: right tw2 antecubital; 09:13 Follow up: IV Status: Completed infusion; IV Intake: 10ml tw2 Disposition Summary: 05/01/21 09:05 Discharge Ordered Location: Home kb Condition: Stable kb Diagnosis - UTI/ Urinary tract infection, site not specified kb Followup: kb - With: Emergency Department - When: As needed - Reason: Worsening of condition Followup: kb - With: Private Physician - When: 2 - 3 days - Reason: Recheck today's complaints, Continuance of care, Re-evaluation by your physician Discharge Instructions: - Discharge Summary Sheet kb - Urinary Tract Infection, Adult, Qfpt-[id number] kb Forms: - Medication Reconciliation Form kb - Thank You Letter kb - Antibiotic Education kb - Prescription Opioid Use kb - Work release form tw2 - Family Work Release tw2 Prescriptions: - Augmentin 875-125 mg Oral Tablet - take 1 tablet by ORAL route every 12 hours for 10 days; 20 tablet; Refills: 0, kb Product Selection Permitted - Diclofenac Sodium 75 mg Oral tablet,delayed release (DR/EC) - take 1 tablet by ORAL route 2 times per day As needed; 30 tablet; Refills: 0, kb Product Selection Permitted Addendum: 05/03/2021 01:16 Co-signature as Attending Physician, Riky Liu MD. [facility] Signatures: Dispatcher [employer] EDCandice Mann, COMMUNITY ORGANIZATION DIRECTOR-C COMMUNITY ORGANIZATION DIRECTOR-Claudia Mcfarland, RN RN tw2 Riky Liu MD MD mh7 Tyrell Cerda RN RN mr2 Corrections: (The following items were deleted from the chart) 05/01 06:52 06:51 Constitutional: This is a well developed, well nourished patient who is awake, kb alert, and in no acute distress. Head/Face: Normocephalic, atraumatic. ENT: Moist Mucous membranes Respiratory: Respirations even and unlabored. No increased work of breathing. Talking in full sentences Back: No spinal tenderness. No costovertebral tenderness. Full range of motion. Skin: Warm, dry with normal turgor. Normal color. MS/ Extremity: Pulses equal, no cyanosis. Neurovascular intact. Full, normal range of motion. Neuro: Awake and alert, GCS 15, oriented to person, place, time, and situation. Moves all extremities. Normal gait. Psych: Awake, alert, with orientation to person, place and time. Behavior, mood, and affect are within normal limits. kb
--- NOTE | 2021-05-01 09:06 | ER ---
Nurse's Notes [facility] Name: Ekta Collins Age: 45 yrs Sex: Female : 1975 Arrival Date: 05/01/2021 Time: 06:34 Bed 14 Private MD: Diagnosis: UTI/ Urinary tract infection, site not specified Presentation: 12 06:38 Chief complaint: Patient states: pt complains of r sided flank pain x 2mo. co pain w mr2 urination. denies fever nvd. Coronavirus screen: Vaccine status: Patient reports receiving the 2nd dose of the covid vaccine. Ebola Screen: No symptoms or risks identified at this time. Initial Sepsis Screen: Does the patient meet any 2 criteria? No. Patient's initial sepsis screen is negative. Does the patient have a suspected source of infection? No. Patient's initial sepsis screen is negative. Risk Assessment: Do you want to hurt yourself or someone else? Patient reports no desire to harm self or others. Onset of symptoms was May 01, 2021. 06:38 Method Of Arrival: Ambulatory mr2 06:38 Acuity: FRENCH 3 mr2 Triage Assessment: 06:44 General: Appears distressed, uncomfortable, Behavior is restless. Pain: Complains of mr2 pain in right mid back. 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 - Social history:: Smoking status: Patient denies any tobacco usage or history of. Screenin:45 Abuse screen: Denies threats or abuse. Denies injuries from another. Nutritional mr2 screening: No deficits noted. Tuberculosis screening: No symptoms or risk factors identified. Fall Risk None identified. Assessment: 06:45 General: Appears distressed, uncomfortable. Pain: Pain does not radiate. Pain currently mr2 is 7 out of 10 on a pain scale. 07:33 Reassessment: Patient appears in no apparent distress at this time. Patient and/or tw2 family updated on plan of care and expected duration. Pain level reassessed. Patient is alert, oriented x 3, equal unlabored respirations, skin warm/dry/pink. Patient states feeling better. 09:13 Reassessment: Patient appears in no apparent distress at this time. Patient and/or tw2 family updated on plan of care and expected duration. Pain level reassessed. Patient is alert, oriented x 3, equal unlabored respirations, skin warm/dry/pink. Patient states feeling better. Vital Signs: 06:38 BP 114 / 88; Pulse 82; Resp 18; Temp 98.5; Pulse Ox 99% on R/A; Weight 68.04 kg; Height mr2 5 ft. 1 in. (154.94 cm); Pain 7/10; 07:32 BP 113 / 73; Pulse 59; Resp 17; Pulse Ox 98% on R/A; tw2 09:13 BP 110 / 74; Pulse 61; Resp 17; Pulse Ox 96% on R/A; tw2 06:38 Body Mass Index 28.34 (68.04 kg, 154.94 cm) mr2 ED Course: 06:34 Patient arrived in ED. wm 06:35 Candice Ibarra FNP-C is PHCP. kb 06:35 Riky Liu MD is Attending Physician. kb 06:37 Tyrell Cerda, RN is Primary Nurse. mr2 06:44 Triage completed. mr2 06:44 Arm band placed on right wrist. mr2 06:45 Patient has correct armband on for positive identification. Bed in low position. Side mr2 rails up X2. Adult w/ patient. 06:45 No provider procedures requiring assistance completed. Inserted saline lock: 18 gauge mr2 in right antecubital area, using aseptic technique. 07:01 CBC with Diff Sent. mr2 07:01 Basic Metabolic Panel Sent. mr2 07:01 Basic Metabolic Panel Sent. mr2 07:03 Urine Microscopic Only Sent. oe 07:16 Primary Nurse role handed off by Tyrell Cerda, RN tw2 07:16 Claudia Mireles, JAYSON is Primary Nurse. tw2 07:39 CT Stone Protocol In Process Unspecified. EDMS 09:19 IV discontinued, intact, bleeding controlled, No redness/swelling at site. Pressure tw2 dressing applied. Administered Medications: 07:00 Drug: Ketorolac 30 mg Route: IVP; Site: right antecubital; mr2 08:09 Follow up: Response: No adverse reaction; Pain is unchanged, physician notified tw2 08:14 Drug: Zofran (Ondansetron) 4 mg Route: IVP; Site: right antecubital; tw2 09:12 Follow up: Response: No adverse reaction tw2 08:16 Drug: fentaNYL (PF) 25 mcg {Note: RASS 0.} Route: IVP; Site: right antecubital; tw2 09:12 Follow up: Response: No adverse reaction; Pain is decreased; RASS: Alert and Calm (0) tw2 09:08 Drug: Rocephin (cefTRIAXone) 1 grams Route: IV; Rate: calculated rate; Site: right tw2 antecubital; 09:13 Follow up: IV Status: Completed infusion; IV Intake: 10ml tw2 Intake: 09:13 IV: 10ml; Total: 10ml. tw2 Outcome: 09:05 Discharge ordered by . bianca 09:19 Discharged to home ambulatory, with significant other. tw2 09:19 Condition: stable 09:19 Discharge instructions given to patient, significant other, Instructed on discharge instructions, follow up and referral plans. medication usage, Demonstrated understanding of instructions, follow-up care, medications, Prescriptions given X 2. 09:19 Patient left the ED. tw2 Signatures: Dispatcher [employer] EDMS Candice Ibarra, YOBANI POWER-Claudia Mcfarland, RN RN tw2 Rolan Manzo Wendy wm Reynard, Mike RN RN mr2
[2021-05-01] MEDS ORDERED: CEFTRIAXONE 1000 MG/VIAL ONE (09:07)
[2021-05-01 09:25] VITALS: TEMP 98.5
[2021-05-01 09:29] VITALS: BP 110/74; O2SAT 96
== END 2021-05-01 09:19 | disposition home or self-care (01) ==
LOC: ER 06:31
DX: N39.0 Urinary tract infection, site not specified (principal); E78.5 Hyperlipidemia, unspecified
CPT/HCPCS: 87088; 85025; 87086; 80048; 36415; 81025; 76377; 74176; 96375; 96374; 99284; J3010; J2405; 81003; 81015

== ENCOUNTER 2024-05-18 07:41 | Day surgery (SDC) | payer OTHER ==
[2024-05-15 14:44] LABS: Absolute Eosinophils 0.3 K/uL (0-0.5); Absolute Lymphocytes (CBC) 2.4 K/uL (0.7-4.9); Absolute Monocytes 0.7 K/uL (0.1-1.3); Absolute Neutrophil 5.5 K/uL (1.8-8.0); Basophils % 0.4 % (0-1.3); Eosinophils % 3.6 % (0-4.4); Hematocrit 40.9 % (36.0-45.0); Hemoglobin 13.7 g/dL (12.0-15.0); Lymphocytes % 26.5 % (15.3-44.8); MCH 31.8 pg (27.0-35.0); MCHC 33.6 g/dL (32.0-36.0); MCV 94.7 fL (80-100); MPV 8.3 fL (7.6-11.3); Monocytes % 7.7 % (3.3-12.3); Neutrophils % 61.8 % (41.7-73.7); Platelets 302 thou/uL (152-406); RBC Red Blood Cell Count 4.32 M/uL (3.86-4.86); Red Cell Distribution Width 12.7 % (12.1-15.2)
[2024-05-15 15:08] LABS: Anion Gap 7.7 mEq/L (5.0-15.0); Potassium 3.7 mEq/L (3.5-5.1)
--- NOTE | 2024-05-15 16:45 | RAD REPORT ---
EXAMINATION: TWO VIEW CHEST XR CLINICAL INDICATION: Female, 48 years old. [facility] pre op for day surgery. Hypertension TECHNIQUE: 2 view radiographs of the chest were performed. COMPARISON: 11/04/2017 FINDINGS: The lungs are well inflated and clear apart from right basilar mild reticular opacities which may be accentuated by superimposition of soft tissue, stable. No pneumothorax or sizable effusion. The heart is normal in size. Mediastinal contours are unremarkable. IMPRESSION: No acute or significant abnormalities.
[2024-05-18] MEDS: Ringers Lactate 1,000 ML IV ONE (08:10)
[2024-05-18] MEDS: CEFAZOLIN SODIUM 1 GM/VIAL ONE (08:58)
[2024-05-18] MEDS ORDERED: FENTANYL CITR 100 MCG/2 ML ONE ×2 (08:59→09:10)
[2024-05-18] MEDS ORDERED: propofoL 200 MG/20 ML VIAL IV ONE ×2 (08:59→09:15)
[2024-05-18] MEDS ORDERED: LIDOCAINE 1% MPF 5 ML VIAL ONE (08:59)
[2024-05-18] MEDS ORDERED: MIDAZOLAM HCL 2 MG/2 ML INJ ONE ×2 (08:59→09:11)
[2024-05-18] MEDS ORDERED: LIDOCAINE 2% MPF 5 ML VIAL ONE (09:10)
[2024-05-18] MEDS ORDERED: dexAMETHasone 4 MG/ML VIAL ONE ×2 (09:10→09:43)
[2024-05-18] MEDS ORDERED: ONDANSETRON 4 MG/2 ML VIAL ONE ×2 (09:10→09:43)
[2024-05-18] MEDS ORDERED: NS 0.9% VIAL 10 ML ONE (09:43)
[2024-05-18] MEDS ORDERED: Phenylephrine HCl 10 MG/ML 1 ML VIAL ONE (09:43)
--- NOTE | 2024-05-18 10:25 | P.BOP ---
Preoperative diagnosis: left tender subQ chest wall mass Postoperative diagnosis: same Primary procedure: Excisional biopsy left tender subQ chest wall mass 7 x 5cm Estimated blood loss: <10cc Specimen: mass Findings: mass Anesthesia: General Complications: None Transferred to: Recovery Room Condition: Good
[2024-05-18] MEDS: HYDROMORPHONE HCL 1 MG/ML INJ ONE (10:34)
[2024-05-18 10:42] VITALS: O2SAT 100
--- NOTE | 2024-05-18 11:10 | EKG ---
Test Date: 2024-05-15 Test Time: 15:27:34 Pediatrician: CARMELA MEASUREMENT RESULTS: Intervals: Rate: 76 NH: 162 QRSD: 86 QT: 374 QTc: 420 [place]: P: 32 NH: 162 QRS: -12 T: 16 INTERPRETIVE STATEMENTS: Normal sinus rhythm Normal ECG No previous ECG available for comparison Electronically Signed On 05-18-24 11:07:37 PRODUCT AMBASSADOR by Martin Ivory
[2024-05-18] MEDS ORDERED: CODEINE 30MG/APAP 300MG TAB ONE (11:19)
[2024-05-18] MEDS ORDERED: HYDROCODONE/APAP 7.5/325 MG TAB PO ONE (11:25)
[2024-05-18] MEDS: HYDROCODONE/APAP 7.5/325 MG TAB ONE (11:32)
[2024-05-18 11:44] VITALS: BP 105/64; TEMP 98.1
--- NOTE | 2024-05-18 12:20 | OP ---
Date of Procedure: 05/18/2024 Surgeon: Leonel Carrillo MD Preoperative Diagnosis: Left tender subcutaneous chest wall mass. Postoperative Diagnosis: Left tender subcutaneous chest wall mass. Procedure: Excisional biopsy of left tender subcutaneous chest wall mass 7 x 5 cm. Estimated Blood Loss: Less than 10 cc. Specimen: Mass. Anesthesia: General plus local. Complications: None. Indication: This is a case of a 48-year-old patient who came to us with a left tender chest wall mas s. The benefits, alternatives, and risks of excision fully explained, which include, but not limited to, infection, bleeding, damage to adjacent structures, anesthesia complication, recurrence, NE, and even . She also understands this may not relieve any symptoms. She might need more than one s urgical intervention. She understood, signed a consent. Description Of Procedure: The area of concern was marked by me and the patient in the holding room. The patient was brought to the operating room, placed in supine position. Anesthesia was induced wi thout complication. Chest wall was prepped and draped in the usual sterile fashion. Marcaine 0.5% w as injected for local anesthetic followed by sharp incision of the skin in the area of concern palpat ed. Incision was carried down to deep subcutaneous tissue. We noticed this mass to be attached to t he fascia of the muscle but it does not penetrate the muscle. Mass was completely removed in one uni t. Area was irrigated. Hemostasis was obtained and we proceeded to close this with a combination of 3-0 chromic in the subcutaneous tissue and 4-0 PDS for the skin. Sponge counts and instrument count s were correct. Hemostasis was obtained before closure and also local anesthetic was applied before closure and also irrigation. Steri-Strips were placed over the area. Sponge counts and instrument c ounts correct. Patient was sent to Recovery in stable condition. FERMIN/JAQUELINE Voice ID: [id number] Report ID: [id number]
--- NOTE | 2024-05-18 12:23 | DS ---
Date of Discharge: 05/18/2024 Diagnosis: Tender left subcutaneous chest wall mass. Procedure: Excisional biopsy of tender left chest wall subcutaneous mass. Disposition: Home. Activity: As tolerated. No heavy lifting. Followup: Follow up in my office in 1 week. Call for appointment at [phone]. Keep area dry for 48 hours, then may shower. Keep Steri-Strip intact. Medications: See orders. FERMIN/JAQUELINE Voice ID: [id number] Report ID: [id number]
== END 2024-05-18 11:41 | disposition home or self-care (01) ==
LOC: OR 07:41
PROVIDERS: ATTEND Surgery
PROC: 0JB60ZZ Excision of Chest Subcutaneous Tissue and Fascia, Open Approach (ICD-10-PCS; principal; 2024-05-18 09:27)
DX: D17.1 Benign lipomatous neoplasm of skin and subcutaneous tissue of trunk (principal)
CPT/HCPCS: 93005; 85025; 80048; 36415; 81025; 88305; 71046; 11406; A4216; J2704; J1100 ×2; J2371; J2003; J2250; J3010; J1171; J2405 ×2; J7120; J0690